=== PATIENT | female | born 1945 | race Caucasian/White ===

== ENCOUNTER → 2016-06-25 | Outpatient (REF) | payer MEDICARE, OTHER ==
[~2016-06-25] MED LIST: ACET50TA PO; CIPR500T89 PO; DIFL150T PO; FLAG500T PO; no historical meds
== END ==
LOC: M LAB REF 13:15
PROVIDERS: ATTEND Internal Medicine
DX: E83.52 Hypercalcemia (principal)

== ENCOUNTER → 2017-08-19 | Outpatient (REF) | payer MEDICARE, OTHER ==
[2017-08-19 12:15] LABS: APPEARANCE, URINE MANUAL CLEAR (CLEAR); BILIRUBIN, URINE MANUAL NEGATIVE (NEGATIVE); BLOOD URINE MANUAL NEGATIVE (NEGATIVE); COLOR, URINE MANUAL LT YELLOW (YELLOW); GLUCOSE, URINE (UA) MANUAL NEGATIVE (NEGATIVE); KETONE, URINE MANUAL NEGATIVE (NEGATIVE); LEUKOCYTE ESTERASE, URINE MAN NEGATIVE (NEGATIVE); NITRITE, URINE MANUAL NEGATIVE (NEGATIVE); PROTEIN, URINE MANUAL NEGATIVE (NEGATIVE); SPECIFIC GRAVITY,URINE MANUAL 1.005 (1.002-1.035); UROBILINOGEN, URINE MANUAL NORMAL (NORMAL)
[2017-08-19 12:17] LABS: MICROSCOPIC INDICATED? MAN NO (NO); PROTHROMBIN TIME 13.3 SECONDS (12.4-14.5)
[2017-08-19 12:18] LABS: PARTIAL THROMBOPLASTIN TIME 28.2 SECONDS (26.8-37.9)
== END ==
LOC: M LAB REF 11:47
DX: Z01.818 Encounter for other preprocedural examination (principal); Z79.01 Long term (current) use of anticoagulants
CPT/HCPCS: 85610

== ENCOUNTER 2018-12-19 08:20 | Day surgery (SDC) | payer MEDICARE, OTHER ==
[~2018-12-19] VITALS: Ht 160 cm; Wt 66.2 kg
[~2018-12-19 08:20] MED LIST changes: -ACET50TA PO; +AMOX500T2 PO; +ASTE0.15; +MAPA500T17 PO; +NS 1,000 ML IV ONE; +ONE-TAB31 PO
[2018-12-19] MEDS ORDERED: PROPOFOL 200 MG/20 ML VIAL As Ordered ONE (10:18)
--- NOTE | 2018-12-19 10:40 | ROOR ---
Patient Name: Trena Linder Procedure Date: 12/19/2018 10:17 AM Date of : 1945 Age: 73 Room: [facility] Gender: Female Note Status: Finalized Procedure: Total Colonoscopy to Cecum Indications: Screening for colorectal malignant neoplasm Providers: Sree Bhagat MD Referring MD: Vianney Martínez DO Requesting Provider: Medicines: Monitored Anesthesia Care Complications: No immediate complications. Procedure: Pre-Anesthesia Assessment: - The heart rate, respiratory rate, oxygen saturations, blood pressure, adequacy of pulmonary ventilation, and response to care were monitored throughout the procedure. The Colonoscope was introduced through the anus and advanced to the cecum, identified by appendiceal orifice and ileocecal valve. The colonoscopy was performed without difficulty. The patient tolerated the procedure well. The quality of the bowel preparation was excellent. Findings: The perianal and digital rectal examinations were normal. Non-bleeding internal hemorrhoids were found during retroflexion. The hemorrhoids were small and Grade I (internal hemorrhoids that do not prolapse). Multiple small and large-mouthed diverticula were found in the recto-sigmoid colon, sigmoid colon and descending colon. The exam was otherwise without abnormality on direct and retroflexion views. Impression: - Non-bleeding internal hemorrhoids. - Diverticulosis in the recto-sigmoid colon, in the sigmoid colon and in the descending colon. - The examination was otherwise normal on direct and retroflexion views. - No specimens collected. - The exam was otherwise normal to the cecum. Recommendation: - Patient has a contact number available for emergencies. The signs and symptoms of potential delayed complications were discussed with the patient. Return to normal activities tomorrow. Written discharge instructions were provided to the patient. - High fiber diet. - Discharge patient to home. - Continue present medications. - Repeat colonoscopy Repeat for symptoms only. for screening purposes. - The findings and recommendations were discussed with the patient's family. Sree Bhagat MD Sree Bhagat MD 12/19/2018 10:40:02 AM Electronically signed by Sree Bhagat MD Number of Addenda: 0 Note Initiated On: 12/19/2018 10:17 AM Estimated Blood Loss: Estimated blood loss: none.
[2018-12-19 11:05] VITALS: BP 174/80
== END 2018-12-19 11:09 | disposition home or self-care (01) ==
LOC: M OPP 08:20
PROVIDERS: ATTEND Internal Medicine Gastroenterology
DX: Z12.11 Encounter for screening for malignant neoplasm of colon (principal); K64.0 First degree hemorrhoids; K57.30 Diverticulosis of large intestine without perforation or abscess without bleeding; G47.30 Sleep apnea, unspecified; Z88.5 Allergy status to narcotic agent; Z88.8 Allergy status to other drugs, medicaments and biological substances; Z91.040 Latex allergy status

== ENCOUNTER 2018-12-30 10:00 | Emergency (ER) | payer MEDICARE, OTHER ==
[~2018-12-30] VITALS: Ht 160 cm; Wt 66.4 kg
[~2018-12-30 10:00] MED LIST changes: -NS 1,000 ML IV ONE
[2018-12-30 12:04] LABS: BASO % 0.2 % (0.0-1.0); EOS # 0.1 10^3/uL (0.0-0.50); EOS % 0.9 % (0.0-3.0); HEMATOCRIT 39.4 % (36.0-47.0); HEMOGLOBIN 12.7 g/dl (12.0-15.5); LYMPH # 1.2 10^3/uL (1.5-4.5); LYMPH % 9.2 % (24.0-44.0); MEAN CORPUSCULAR HEMOGLOBIN 28.7 pg (27.0-33.0); MEAN CORPUSCULAR HGB CONC 32.2 g/dl (32.0-36.5); MEAN CORPUSCULAR VOLUME 89.1 fl (80.0-96.0); MONO # 1.6 10^3/uL (0.0-0.8); MONO % 12.7 % (0.0-5.0); NEUTROPHILS # 9.7 10^3/uL (1.8-7.7); NEUTROPHILS % 76.4 % (36.0-66.0); PLATELET COUNT, AUTOMATED 366 10^3/uL (150-450); RED BLOOD COUNT 4.42 10^6/uL (4.00-5.40); WHITE BLOOD COUNT 12.7 10^3/uL (4.0-10.0)
[2018-12-30 12:33] LABS: ALBUMIN 3.4 GM/DL (3.2-5.2); ALT/SGPT 35 U/L (12-78); BILIRUBIN,DIRECT 0.2 MG/DL (0.0-0.2); BLOOD UREA NITROGEN 12 MG/DL (7-18); CALCIUM LEVEL 9.3 MG/DL (8.8-10.2); CARBON DIOXIDE LEVEL 31 MEQ/L (21-32); CHLORIDE LEVEL 102 MEQ/L (98-107); CREATININE FOR GFR 0.69 MG/DL (0.55-1.30); GLOMERULAR FILTRATION RATE > 60.0 (>39); GLUCOSE, FASTING 93 MG/DL (70-100); LIPASE 69 U/L (73-393); SODIUM LEVEL 141 MEQ/L (136-145); TOTAL PROTEIN 6.9 GM/DL (6.4-8.2)
[2018-12-30] MEDS ORDERED: ISOVUE-370 76% 100ML VIAL (Q9967) As Ordered ONE (12:36)
--- NOTE | 2018-12-30 13:53 | REP ---
CT of the abdomen and pelvis with bowel contrast, without IV contrast, CT angiography: There is no atheroma or stenosis at the proximal celiac artery, superior mesenteric artery or inferior mesenteric artery. There is no calcified atheroma or stenosis on the right or left renal arteries. There is no atheroma or stenosis in the iliac arteries, femoral arteries or their bifurcations. There are multiple diverticula throughout the entire colon from cecum to rectosigmoid colon. There is wall thickening and pericolonic stranding of the sigmoid colon compatible with diverticulitis. There is no pericolonic fluid collection or abscess. Additionally, there is a small focal zone of pericolonic stranding in the distal descending colon without fluid collection or abscess formation compatible with a second small zone of diverticulitis. There is no pneumoperitoneum or ascites. There is surgical fusion of the lumbar spine from L3-S1 . As an interval change. The visualized lung francisco are unremarkable. There is an hepatic left lobe cyst measuring 3.0 cm. This measured 2-0.3 cm previously. The hepatic parenchyma is otherwise unremarkable. There are surgical clips in the gallbladder fossa, unchanged. Pancreas, spleen and adrenals are unremarkable. There is a small 1 cm Bosniak type 1 left renal cyst at the mid pole peripherally. The kidneys are otherwise unremarkable. Abdominal aorta is unremarkable. The bowel mesentery is unremarkable except for diverticulosis/diverticulitis. Pelvis: There are calcified fibroids in the uterus. The adnexa are unremarkable. There is no ascites. The bladder is suboptimally distended and cannot be further evaluated. Impression: There are no stenoses of the celiac artery, superior mesenteric artery are inferior mesenteric artery. There is descending colon and sigmoid colon diverticulitis as described. There is no pericolonic abscess or fluid collection. No ascites. Cholecystectomy. Calcified uterine fibroid. Surgical fusion of the lumbar spine. Electronically Signed by Mason Munson MD 12/30/2018 01:45 P
[2018-12-30] MEDS ORDERED: AUGM875T28 PO (14:46)
[2018-12-30 15:00] VITALS: BP 127/71
== END 2018-12-30 15:00 | disposition home or self-care (01) ==
LOC: M ED 10:00
DX: K57.32 Diverticulitis of large intestine without perforation or abscess without bleeding (principal); D25.9 Leiomyoma of uterus, unspecified; J44.9 Chronic obstructive pulmonary disease, unspecified; J45.909 Unspecified asthma, uncomplicated; N80.9 Endometriosis, unspecified; F41.9 Anxiety disorder, unspecified; Z88.5 Allergy status to narcotic agent; Z91.040 Latex allergy status
CPT/HCPCS: 36415; 74174; 80048; 80076; 81001; 83605; 83690; 85025; 99284; Q9967

== ENCOUNTER → 2020-10-18 | Outpatient (CLI) | payer MEDICARE, OTHER ==
[~2020-10-18] MED LIST changes: +AUGM875T28 PO
--- NOTE | 2020-10-18 10:45 | REPPI ---
INDICATION: G47.33 OBSTRUCTIVE SLEEP APNEA. COMPARISON: Multiple the latest 12/26/2012 a portable exam FINDINGS: The superior mediastinal structures are midline. The cardiac silhouette is unremarkable in size, shape, and position. The diaphragmatic surfaces of the lungs are regular, and the costophrenic angles are clear. The pulmonary francisco are clear. The imaged osseous structures are intact. IMPRESSION: There is no acute cardiopulmonary disease. <Electronically signed by Eloy Vegas > 10/18/20 1049
== END ==
LOC: M PLAIMG 10:13
PROVIDERS: ATTEND Internal Medicine Pulmonary Disease
DX: G47.33 Obstructive sleep apnea (adult) (pediatric) (principal)

== ENCOUNTER → 2020-11-19 | Outpatient (CLI) | payer MEDICARE, OTHER ==
[~2020-11-19] MED LIST changes: +METHACHOLINE KIT (J7674) INH ONE
--- NOTE | 2020-11-19 11:17 | PFTRPT ---
Height: 62.50 Inches Weight: 150.00 Lbs BSA: 1.70 Diagnosis: R06.02 DATE: 11/19/2020 ORDERED BY: Jun Aleman M.D. QUALITY: Study of excellent technical quality. PROCEDURE: Under protocol, methacholine was administered. Even after a maximal dose of 25 mg or 188.875 CDUs, no provocation dose ever achieved. IMPRESSION: Negative methacholine challenge study. MTDD
== END ==
LOC: M CARPUL 09:50
PROVIDERS: ATTEND Internal Medicine Pulmonary Disease
DX: R06.02 Shortness of breath (principal)
CPT/HCPCS: 94070; 95070; J7674

== ENCOUNTER 2021-02-13 12:37 | Inpatient (IN) | payer MEDICARE, OTHER ==
[~2021-02-13] VITALS: Ht 160 cm; Wt 65.7 kg
[~2021-02-13 12:37] MED LIST changes: -METHACHOLINE KIT (J7674) INH ONE
--- OUTSIDE RECORDS SUMMARY | 2021-02-13 12:47 | CCD | Continuity of Care Document ---
Author Author Trena ALEMAN MD Organization Unknown Address [address] [place] [address] Phone [phone] Care Team Providers Care Housekeeping Supervisor Hotel Name Role Phone TanyaVianney D.O. AUTM [phone] Problems Active Problems Provider Date Disturbance of consciousness Kaia Guerrero A.NCarlos Onse t: 03/23/2016 Sleep apnea Kaia Guerrero A.NRobPRob Onset: 2015 Social History Type Date Description Comments Sex Unknown Tobacco Use Start: Unknown Patient has never smoked Smoking Status Reviewed: 12/11/20 Patient has never smoked Allergies, Adverse Reactions, Alerts Description No Known Drug Allergies Medications Active Medications SIG Qnty Indications Ordering Provide r Date CPAP +6 cm jade Aleman MD 10/2017 Immunizations Description No Information Available Vital Signs Date Vital Result Comment 12/11/2020 3:20pm BP Systolic 120 mmHg BP Diastolic 70 mmHg Heart Rate 70 /min O2 % BldC Oximetry 98 % Room Air 10/18/2020 9:45am BP Systolic 118 mmHg BP Diastolic 80 mmHg Heart Rate 74 /min O2 % BldC Oximetry 98 % Room Air Height 63 inches 5'3" Weight 147.00 lb BMI (Body Mass Index) 26.0 kg/m2 [place] Body Weight 115 lb Weight 66.679 kg BSA (Body Surface Area) 1.70 m2 Results Description No Information Available Procedures Date Code Description Status 11/14/2020 53573 Diffusing Capacity Completed 11/14/2020 63287 Plethysmography Determination Niru ng Volumes & Per Airway Resist Completed 11/14/2020 70514 Bronchospasm Evaluation Complete d 10/18/2020 29912 Office/Outpatient Established Mo d MDM 30-39 Min Completed Medical Devices Description No Information Available Encounters Type Date Location Provider Dx Diagnosis Office Visit 10/18/2020 9:45a [facility] Lawrbethel Aleman MD G47.33 Obstructive sleep apnea (adult) (pediatr ic) R06.02 Shortness of breath J30.9 Allergic rhinitis, unspecifi ed Assessments Date Code Description Provider 12/11/2020 G47.33 Obstructive sleep apnea (adult) (pediatric) Jun Aleman MD 12/11/2020 J30.9 Allergic rhinitis, unspecified Neto Aleman MD 12/11/2020 R06.02 Shortness of breath Jun mclain MD 11/14/2020 R06.02 Shortness of breath Pulmonary La b 10/18/2020 G47.33 Obstructive sleep apnea (adult) (pediatric) Jun Aleman MD 10/18/2020 R06.02 Shortness of breath Jun mclain MD 10/18/2020 J30.9 Allergic rhinitis, unspecified Neto Aleman MD Plan of Treatment 12/11/2020 - Jun Aleman MD* G47.33 Obstructive sleep apnea (adult) (pediatric) * J30.9 Allergic rhinitis, unspecified * R06.02 Shortness of breath * * Follow up:* 12 months....no testing Functional Status Description No Information Available Mental Status Description No Information Available Referrals Description No Information Available
--- OUTSIDE RECORDS SUMMARY | 2021-02-13 12:47 | CCD | Continuity of Care Document ---
Author Author Trena ALEMAN MD Organization Unknown Address [address] [place] [address] Phone [phone] Care Team Providers Care Independent Distributor Name Role Phone TanyaVianney D.O. AUTM [phone] Problems Active Problems Provider Date Disturbance of [...] lb BMI (Body Mass Index) 26.0 kg/m2 [place] Body Weight 115 lb Weight 66.679 kg BSA (Body Surface Area) 1.70 m2 Results Description No Information Available Procedures Date Code Description Status 11/14/2020 16975 Diffusing Capacity Completed 11/14/2020 08529 Plethysmography Determination Niru ng Volumes & Per Airway Resist Completed 11/14/2020 88085 Bronchospasm Evaluation Complete d 10/18/2020 58971 Office/Outpatient Established Mo d MDM 30-39 Min Completed Medical Devices Description No Information Available Encounters Type Date Location Provider Dx Diagnosis Office Visit 10/18/2020 9:45a [facility] Lawrbethel Aleman MD G47.33 Obstructive sleep apnea (adult) (pediatr ic) R06.02 Shortness of breath J30.9 Allergic rhinitis, unspecifi ed Assessments Date Code Description Provider 12/11/2020 G47.33 Obstructive sleep apnea (adult) (pediatric) Jun Aleman MD 12/11/2020 J30.9 Allergic rhinitis, unspecified Neto Aleman MD 12/11/2020 R06.02 Shortness of breath Jun mclian MD 11/14/2020 R06.02 Shortness of breath Pulmonary [...]
--- OUTSIDE RECORDS SUMMARY | 2021-02-13 12:47 | CCD | Continuity of Care Document ---
Author Author Pulmonary [facility], [facility] More Organization Unknown Address [address] [place] [address] Phone [phone] Care Team Providers Care Slice Plug Cutter Operator Helper Name Role Phone Vianney Martínez D.O. AUTM [phone] Problems Active Problems Provider Date Disturbance of consciousness Kaia Guerrero A.N.P. Onse t: 03/23/2016 Sleep apnea Kaia Guerrero A.NCarlos Onset: 2015 Social History Type Date Description Comments Sex Unknown Tobacco Use Start: Unknown Patient has never smoked Smoking Status Reviewed: 10/18/19 Patient has never smoked Allergies, Adverse Reactions, Alerts Description No Known Drug Allergies Medications Active Medications SIG Qnty Indications Ordering Provide r Date CPAP +6 cm jade Aleman MD 10/2017 Immunizations Description No Information Available Vital Signs Date Vital Result Comment 10/18/2020 9:45am BP Systolic 118 mmHg BP Diastolic 80 mmHg Heart Rate 74 /min O2 % BldC Oximetry 98 % Room Air Height 63 inches 5'3" Weight 147.00 lb BMI (Body Mass Index) 26.0 kg/m2 [place] Body Weight 115 lb Weight 66.679 kg BSA (Body Surface Area) 1.70 m2 10/18/2019 8:45am BP Systolic 120 mmHg BP Diastolic 70 mmHg Heart Rate 70 /min O2 % BldC Oximetry 96 % Room Air Body Temperature 97.0 F Height 63 inches 5'3" Weight 148.00 lb BMI (Body Mass Index) 26.2 kg/m2 [place] Body Weight 115 lb Weight 67.133 kg BSA (Body Surface Area) 1.70 m2 Results Description No Information Available Procedures Date Code Description Status 11/14/2020 76907 Diffusing Capacity Completed 11/14/2020 26334 Plethysmography Determination Niru ng Volumes & Per Airway Resist Completed 11/14/2020 86410 Bronchospasm Evaluation Complete d 10/18/2020 56818 Office/Outpatient Established Mo d MDM 30-39 Min Completed Medical Devices Description No Information Available Encounters Type Date Location Provider Dx Diagnosis Office Visit 10/18/2020 9:45a [facility] Lawrenc adán Aleman MD G47.33 Obstructive sleep apnea (adult) (pediatr ic) R06.02 Shortness of breath J30.9 Allergic rhinitis, unspecifi ed Assessments Date Code Description Provider 11/14/2020 R06.02 Shortness of breath Pulmonary La b 10/18/2020 G47.33 Obstructive sleep apnea (adult) (pediatric) Jun Aleman MD 10/18/2020 R06.02 Shortness of breath Jun mclain MD 10/18/2020 J30.9 Allergic rhinitis, unspecified L janak Aleman MD Plan of Treatment Future Appointment(s):* 12/13/2020 11:15 am - Jun Aleman MD at [facility] * 11/19/2020 10:00 am - [facility] at [facility] 10/18/2020 - Jun Aleman MD* G47.33 Obstructive sleep apnea (adult) (pediatric) * R06.02 Shortness of breath * J30.9 Allergic rhinitis, unspecified * * Comments:* 1. Secondary to cough or shortness of breath, we will obtain full pulmonary function studies and a methacholine bronchoprovocation study.~ In view of her complaints of exertional dyspnea and the question of allergy related, we will repeat her pulmonary functions and a methacholine. I have asked her to update a chest x-ray. When discussing testing first, she was not sure she wanted to proceed, as she said she hates taking medicines but, certainly, if she has issues, we can decide on medications after we know what we are dealing with. She is now agreeable to testing. I will see her in return when the above is available. She can, certainly, call sooner if problems arise with which we can be of assistance. * Follow up:* 1. Schedule pulmonary function testing. 2. Schedule methacholine on a separate day and proceed if pulmonary function testing is normal. 3. Return to see me in follow up with pulmonary function testing, and methacholine challenge. and CXR Functional Status Description No Information Available Mental Status Description No Information Available Referrals Description No Information Available
--- OUTSIDE RECORDS SUMMARY | 2021-02-13 12:47 | CCD ---
Author Author [facility] Organization [facility] Address Unknown Phone Unavailable Care Team Providers Care Tripe Washer Name Role Phone Bud THIBODEAUX. BENEFITS SPECIALIST DAISHA Unavailable [phone] CARLOS EDUARDO, A. BENEFITS SPECIALIST DAISHA Unavailable [phone] CARLOS EDUARDO, A. BENEFITS SPECIALIST DAISHA Unavailable [phone] CARLOS EDUARDO, A. BENEFITS SPECIALIST DAISHA Unavailable [phone] CARLOS EDUARDOLeslie CULLEN BENEFITS SPECIALIST DAISHA Unavailable [phone] CARLOS EDUARDO, A. BENEFITS SPECIALIST DAISHA Unavailable [phone] CARLOS EDUARDO, A. BENEFITS SPECIALIST DAISHA Unavailable [phone] CARLOS EDUARDO, A. BENEFITS SPECIALIST DAISHA Unavailable [phone] CARLOS EDUARDO, A. BENEFITS SPECIALIST DAISHA Unavailable [phone] CARLOS EDUARDO, A. BENEFITS SPECIALIST DAISHA Unavailable [phone] CARLOS EDUARDO, A. BENEFITS SPECIALIST DAISHA Unavailable [phone] CARLOS EDUARDO, A. BENEFITS SPECIALIST DAISHA Unavailable [phone] CARLOS EDUARDO, A. BENEFITS SPECIALIST DAISHA Unavailable [phone] Bud THIBODEAUX. BENEFITS SPECIALIST DAISHA Unavailable [phone] CARLOS EDUARDO, Bud. BENEFITS SPECIALIST DAISHA Unavailable [phone] Tanya, Vianney DO Unavailable Unavailable Tanya, Vianney DO Unavailable Unavailable Tanya, Vianney DO Unavailable Unavailable Tanya, Vianney DO Unavailable Unavailable Tanya, Vianney DO Unavailable Unavailable Tanya, Vianney DO Unavailable Unavailable Tanya, Vianney DO Unavailable Unavailable Tanya, Vianney DO Unavailable Unavailable Tanya, Vianney DO Unavailable Unavailable Tanya, Vianney DO Unavailable Unavailable Tanya, Vianney DO Unavailable Unavailable Tanya, Vianney DO Unavailable Unavailable Tanya, Vianney DO Unavailable Unavailable Tanya, Vianney DO Unavailable Unavailable Tanya, Vianney DO Unavailable Unavailable Tanya, Vianney DO Unavailable Unavailable Tanya, Vianney DO Unavailable Unavailable Tanya, Vianney DO Unavailable Unavailable Tanya, Vianney DO Unavailable Unavailable Tanya, Vianney DO Unavailable Unavailable Tanya, Vianney DO Unavailable Unavailable Tanya, Vianney DO Unavailable Unavailable Tanya, Vianney DO Unavailable Unavailable Tanya, Vianney DO Unavailable Unavailable Tanya, Vianney DO Unavailable Unavailable Tanya, Vianney DO Unavailable Unavailable Tanya, Vianney DO Unavailable Unavailable Tanya, Vianney DO Unavailable Unavailable Tanya, Vianney DO Unavailable Unavailable Tanya, Vianney DO Unavailable Unavailable Tanya, Vianney DO Unavailable Unavailable Tanya, Vianney DO Unavailable Unavailable Tanya, Vianney DO Unavailable Unavailable Tanya, Vianney DO Unavailable Unavailable Tanya, Vianney DO Unavailable Unavailable Tanya, Vianney DO Unavailable Unavailable Tanya, Vianney DO Unavailable Unavailable Tanya, Vianney DO Unavailable Unavailable Tanya, Vianney DO Unavailable Unavailable Tanya, Vianney DO Unavailable Unavailable Tanya, Vianney DO Unavailable Unavailable Tanya, Vianney DO Unavailable Unavailable Tanya, Vianney DO Unavailable Unavailable Tanya, Vianney DO Unavailable Unavailable Tanya, Vianney DO Unavailable Unavailable Tanya, Vianney DO Unavailable Unavailable Tanya, Vianney DO Unavailable Unavailable Tanya, Vianney DO Unavailable Unavailable Tanya, Vianney DO Unavailable Unavailable Tanya, Vianney DO Unavailable Unavailable Tanya, Vianney DO Unavailable Unavailable Tanya, Vianney DO Unavailable Unavailable Tanya, Vianney DO Unavailable Unavailable Tanya, Vianney DO Unavailable Unavailable Tanya, Vianney DO Unavailable Unavailable Tanya, Vianney DO Unavailable Unavailable Tanya, Vianney DO Unavailable Unavailable Tanya, Vianney DO Unavailable Unavailable Tanya, Vianney DO Unavailable Unavailable Tanya, Vianney DO Unavailable Unavailable Tanya, Vianney DO Unavailable Unavailable Tanya, Vianney DO Unavailable Unavailable Tanya, Vianney DO Unavailable Unavailable Tanya, Vianney DO Unavailable Unavailable Tanya, Vianney DO Unavailable Unavailable Tanya, Vianney DO Unavailable Unavailable Tanya, Vianney DO Unavailable Unavailable Tanya, Vianney DO Unavailable Unavailable Tanya, Vianney DO Unavailable Unavailable Tanya, Vianney DO Unavailable Unavailable Tanya, Vianney DO Unavailable Unavailable Tanya, Vianney DO Unavailable Unavailable Tanya, Vianney DO Unavailable Unavailable Tanya, Vianney DO Unavailable Unavailable Manoj Aleman MD Unavailable Unavailable Manoj Aleman MD Unavailable Unavailable Manoj Aleman MD Unavailable Unavailable Manoj Aleman MD Unavailable Unavailable Manoj Aleman MD Unavailable Unavailable Manoj Aleman MD Unavailable Unavailable Manoj Aleman MD Unavailable Unavailable Manoj Aleman MD Unavailable Unavailable Manoj Aleman MD Unavailable Unavailable Manoj Aleman MD Unavailable Unavailable Manoj Aleman MD Unavailable Unavailable Manoj Aleman MD Unavailable Unavailable Manoj Aleman MD Unavailable Unavailable Manoj Aleman MD Unavailable Unavailable Manoj Aleman MD Unavailable Unavailable Manoj Aleman MD Unavailable Unavailable Manoj Aleman MD Unavailable Unavailable Manoj Aleman MD Unavailable Unavailable Manoj Aleman MD Unavailable Unavailable Manoj Aleman MD Unavailable Unavailable Manoj Aleman MD Unavailable Unavailable Manoj Aleman MD Unavailable Unavailable Manoj Aleman MD Unavailable Unavailable Manoj Aleman MD Unavailable Unavailable Manoj Aleman MD Unavailable Unavailable Manoj Aleman MD Unavailable Unavailable Manoj Aleman MD Unavailable Unavailable Manoj Aleman MD Unavailable Unavailable Manoj Aleman MD Unavailable Unavailable Manoj Aleman MD Unavailable Unavailable Manoj Aleman MD Unavailable Unavailable Manoj Aleman MD Unavailable Unavailable Manoj Aleman MD Unavailable Unavailable Manoj Aleman MD Unavailable Unavailable Manoj Aleman MD Unavailable Unavailable Manoj Aleman MD Unavailable Unavailable Manoj Aleman MD Unavailable Unavailable Manoj Aleman MD Unavailable Unavailable Manoj Aleman MD Unavailable Unavailable Manoj Aleman MD Unavailable Unavailable Manoj Aleman MD Unavailable Unavailable Manoj Aleman MD Unavailable Unavailable Manoj Aleman MD Unavailable Unavailable Manoj Aleman MD Unavailable Unavailable Manoj Aleman MD Unavailable Unavailable Manoj Aleman MD Unavailable Unavailable Manoj Aleman MD Unavailable Unavailable Manoj Aleman MD Unavailable Unavailable Manoj Aleman MD Unavailable Unavailable Maonj Aleman MD Unavailable Unavailable Manoj Aleman MD Unavailable Unavailable Manoj Aleman MD Unavailable Unavailable Manoj Aleman MD Unavailable Unavailable Manoj Aleman MD Unavailable Unavailable Re-disclosure Warning The records that you are about to access may contain information from federally-assisted alcohol or drug abuse programs. If such information is present, then the following federally mandated warning applies: This information has been disclosed to you from records protected by federal confidentiality rules (42 CFR part 2). The federal rules prohibit you from making any further disclosure of this information unless further disclosure is expressly permitted by the written consent of the person to whom it pertains or as otherwise permitted by 42 CFR part 2. A general authorization for the release of medical or other information is NOT sufficient for this purpose. The Federal rules restrict any use of the information to criminally investigate or prosecute any alcohol or drug abuse patient.The records that you are about to access may contain highly sensitive health information, the redisclosure of which is protected by Article 27-F of the [facility] Public Health law. If you continue you may have access to information: Regarding HIV / AIDS; Provided by facilities licensed or operated by the [facility] Office of Mental Health; or Provided by the [facility] Office for People With Developmental Disabilities. If such information is present, then the following [facility] mandated warning applies: This information has been disclosed to you from confidential records which are protected by state law. State law prohibits you from making any further disclosure of this information without the specific written consent of the person to whom it pertains, or as otherwise permitted by law. Any unauthorized further disclosure in violation of state law may result in a fine or chcf sentence or both. A general authorization for the release of medical or other information is NOT sufficient authorization for further disc losure. Family History Family Member Name Family Member Gender Family Member Status Date o f Status Description Data Source(s) Unknown Unknown Problem [facility] ([facility]) Unknown Male Problem [facility] ([facility] () - lung disease Unknown Male Problem [facility] ([facility] () Encounters Encounter Providers Location Date Indications Data Source(s ) Outpatient Attender: DAISHA THIBODEAUX 01/31 11:36:31 AM EDT - 02/13/2021 12:11:09 PM EDT [facility] ([facility] ) Outpatient Attender: Jun Pena/Magno/Nacho/Argenis eindelda 12/11/2020 03:15:00 PM EDT [facility] ([facility]) Outpatient Attender: Jun Pena/Magno/Nacho/Argenis eindelda 10/18/2020 09:45:00 AM EDT [facility] ([facility]) Outpatient Attender: Vianney Milligan 10/16 08:00:00 AM EDT [facility] ([facility] ) Immunizations Vaccine Date Status Description Data Source(s) Shingrix Zoster Vaccine (HZV), Recombinant, Subunit, A djuvanted 10/16/2020 08:11:00 AM EDT completed [facility] ([facility]) This CVX code allows reporting of a vacc ination when formulation is unknown (for example, when recording a Influenza vaccination when noted on a vaccination card) 10/16/2020 08:11:00 AM EDT completed MEDEN T ([facility]) PNEUMOC 13-YAZMIN CONJ-DIP CRM/PF 10/16/2020 12:00:00 AM EDT completed [facility] Medications Medication Brand Name Start Date Product Form Dose Route Admi nistrative Instructions Pharmacy Instructions Status Indications Reaction Description Data Source(s) 150 mg 02/10/2021 12:00:00 AM EDT tablet 2 TAKE ONE TABLET BY MOUTH EVERY DAY TAKE ONE TABLET BY MOUTH EVERY DAY SOLD: 02/10/2021 [facility] 250 mg 02/04/2021 12:00:00 AM EDT tablet 6 TAKE TWO TABLETS BY MOUTH AT ONCE ON THE FIRST DAY THEN TAKE ONE DAILY THEREAFTER TAKE TWO TABLETS BY MOUTH AT ONCE ON THE FIRST DAY THEN TAKE ONE DAILY THEREAFTER SOLD: 02/04/2021 [facility] 20 mg 02/04/2021 12:00:00 AM EDT tablet 10 TAKE TWO TABLETS BY MOUTH EVERY MORNING FOR 5 DAYS TAKE TWO TABLETS BY MOUTH EVERY MORNING FOR 5 DAYS LINDSAY [facility] Azelastine hydrochloride 0.206 MG/ACTUAT Metered Dose Nasal Egan 205.5 mcg (0.15 %) AZELASTINE HCL 10/31/2020 12:00:00 AM EDT spray,non-aerosol 30 SPRAY 1 SPRAY IN EACH NOSTRIL ONCE A DAY NEEDED SPRAY 1 SPRAY IN EACH NOSTRIL ONCE A DAY NEEDED SOLD: 11/02/2020 [facility] Nystatin 023166 UNT/ML / Triamcinolone A cetonide 1 MG/ML Topical Cream 100,000- 0.1 unit/g-% NYSTATIN/TRIAMCIN 10/17/2020 12:00:00 AM EDT cream 30 APPLY UNDER BOTH BREASTS FOUR TIMES A DAY APPLY UNDER BOTH BREASTS FOUR TIMES A DAY SOLD: 10/30/2020 [facility] 100,000 unit/mL 10/16/2020 12:00:00 AM EDT suspension 150 SWISH 1 TEASPOONFUL (5 ML) IN MOUTH THEN SWALLOW THREE TIMES A DAY FOR 10 DAYS AND NEEDED SWISH 1 TEASPOONFUL (5 ML) IN MOUTH THEN SWALLOW THREE TIMES A DAY FOR 10 DAYS AND NEEDED SOLD: 01/23/2021 [facility] Nystatin 360997 UNT/ML Oral Suspension Nystatin 10/16/2020 12:00:00 AM EDT active [facility] ([facility]) 100,000 unit/mL 10/16/2020 12:00:00 AM EDT suspension 250 SWISH 1 TEASPOONFUL (5 ML) IN MOUTH THEN SWALLOW THREE TIMES A DAY FOR 10 DAYS AND NEEDED SWISH 1 TEASPOONFUL (5 ML) IN MOUTH THEN SWALLOW THREE TIMES A DAY FOR 10 DAYS AND NEEDED SOLD: 12/10/2020 [facility] 100,000 unit/mL 10/16/2020 12:00:00 AM EDT suspension 250 SWISH 1 TEASPOONFUL (5 ML) IN MOUTH THEN SWALLOW THREE TIMES A DAY FOR 10 DAYS AND NEEDED SWISH 1 TEASPOONFUL (5 ML) IN MOUTH THEN SWALLOW THREE TIMES A DAY FOR 10 DAYS AND NEEDED SOLD: 10/16/2020 [facility] 0.5 ML Streptococcus pneumoniae serotype 1 capsular antigen diphtheria [id number] protein conjugate vaccine 0.0044 MG/ML / Streptococcus pneumoniae serotype 14 capsular antigen diphtheria [id number] protein conjugate vaccine 0.0044 MG/ML / Streptococcus pneumonia Prevnar 13 10/16/2020 12:00:00 AM EDT active [facility]) Shingrix Shingrix 10/16/2020 12:00:00 AM EDT activ e [facility] ([facility]) 150 mg 09/20/2020 12:00:00 AM EDT tablet 2 TAKE ONE TABLET BY MOUTH EVERY DAY TAKE ONE TABLET BY MOUTH EVERY DAY SOLD: 11/05/2020 [facility] 150 mg 09/20/2020 12:00:00 AM EDT tablet 2 TAKE ONE TABLET BY MOUTH EVERY DAY TAKE ONE TABLET BY MOUTH EVERY DAY SOLD: 09/20/2020 [facility] 150 mg 09/20/2020 12:00:00 AM EDT tablet 2 TAKE ONE TABLET BY MOUTH EVERY DAY TAKE ONE TABLET BY MOUTH EVERY DAY SOLD: 10/02/2020 [facility] 150 mg 09/20/2020 12:00:00 AM EDT tablet 2 TAKE ONE TABLET BY MOUTH EVERY DAY TAKE ONE TABLET BY MOUTH EVERY DAY SOLD: 12/17/2020 [facility] 250 mg 08/02/2020 12:00:00 AM EDT tablet 6 TAKE TWO TABLETS BY MOUTH AT ONCE ON THE FIRST DAY THEN TAKE ONE DAILY THEREAFTER TAKE TWO TABLETS BY MOUTH AT ONCE ON THE FIRST DAY THEN TAKE ONE DAILY THEREAFTER SOLD: 08/02/2020 [facility] Zithromax Z-Fredy Zithromax Z-Fredy 08/02/2020 12:00:00 AM EDT ORAL active [facility] ([facility]) 150 mg 02/20/2020 12:00:00 AM EDT tablet 2 TAKE 1 TABLET FOR 1 DOSE THEN MAY REPEAT IN 3 DAYS TAKE 1 TABLET FOR 1 DOSE THEN MAY REPEAT IN 3 DAYS LINDSAY [facility] 150 mg 02/20/2020 12:00:00 AM EDT tablet 2 TAKE 1 TABLET FOR 1 DOSE THEN MAY REPEAT IN 3 DAYS TAKE 1 TABLET FOR 1 DOSE THEN MAY REPEAT IN 3 DAYS LINDSAY [facility] 150 mg 02/20/2020 12:00:00 AM EDT tablet 2 TAKE 1 TABLET FOR 1 DOSE THEN MAY REPEAT IN 3 DAYS TAKE 1 TABLET FOR 1 DOSE THEN MAY REPEAT IN 3 DAYS LINDSAY [facility] 150 mg 02/20/2020 12:00:00 AM EDT tablet 2 TAKE 1 TABLET FOR 1 DOSE THEN MAY REPEAT IN 3 DAYS TAKE 1 TABLET FOR 1 DOSE THEN MAY REPEAT IN 3 DAYS LINDSAY [facility] 150 mg 02/20/2020 12:00:00 AM EDT tablet 2 TAKE 1 TABLET FOR 1 DOSE THEN MAY REPEAT IN 3 DAYS TAKE 1 TABLET FOR 1 DOSE THEN MAY REPEAT IN 3 DAYS LINDSAY [facility] 500 mg 02/14/2020 12:00:00 AM EDT capsule 4 TAKE FOUR CAPSULES BY MOUTH 1 HOUR PRIOR TO PROCEDURE TAKE FOUR CAPSULES BY MOUTH 1 HOUR PRIOR TO PROCEDURE SOLD: 12/04/2020 [facility] 500 mg 02/14/2020 12:00:00 AM EDT capsule 4 TAKE FOUR CAPSULES BY MOUTH 1 HOUR PRIOR TO PROCEDURE TAKE FOUR CAPSULES BY MOUTH 1 HOUR PRIOR TO PROCEDURE SOLD: 02/21/2020 [facility] 500 mg 01/19/2020 12:00:00 AM EDT capsule 4 TAKE FOUR CAPSULES BY MOUTH 1 HOUR PRIOR TO DENTAL PROCEDURE TAKE FOUR CAPSULES BY MOUTH 1 HOUR PRIOR TO DENTAL PROCEDURE SOLD: 01/22/2020 [facility] 150 mg 10/25/2019 12:00:00 AM EDT tablet 2 TAKE ONE TABLET BY MOUTH TODAY. MAY REPEAT IN 3 DAYS. TAKE ONE TABLET BY MOUTH TODAY. MAY REPEAT IN 3 DAYS. SOLD: 01/24/2020 [facility] 150 mg 10/25/2019 12:00:00 AM EDT tablet 2 TAKE ONE TABLET BY MOUTH TODAY. MAY REPEAT IN 3 DAYS. TAKE ONE TABLET BY MOUTH TODAY. MAY REPEAT IN 3 DAYS. SOLD: 01/04/2020 [facility] 150 mg 10/25/2019 12:00:00 AM EDT tablet 2 TAKE ONE TABLET BY MOUTH TODAY. MAY REPEAT IN 3 DAYS. TAKE ONE TABLET BY MOUTH TODAY. MAY REPEAT IN 3 DAYS. SOLD: 02/09/2020 [facility] Covid-19 vaccine, Unspecified completed [facility] ([facility]) Insurance Providers Payer name Policy type / Coverage type Policy ID Covered green party ID Covered green party's relationship to medel Policy Medel Plan Information [facility] [employer] Medigap Part B [id number] Self [id number] [facility] [employer] Commercial [id number] Self [id number] MEDICARE [id number] SP [id number] Medicare Natl Govt Servic Medicare Primary [id number] Self [id number] Medicare Natl Govt Servic Medicare Primary [id number] Self Medicare Natl Govt Servic Medicare Primary [id number] Self [id number] Medicare Natl Govt Servic Medicare Primary [id number] Self [id number] MEDICARE [id number] SP [id number] A MEDICARE A [id number] Self [id number] A [facility] Jurisdiction A [facility] C [id number] SELF [id number] Medicare C [id number] SELF [id number] A Medicare C [id number] SELF [id number] A Medicare C [id number] SELF [id number] A MEDICARE [id number] Zayra [id number] A Medicare Blue Ppo Commercial [id number] Self [id number] Medicare Blue Ppo Commercial [id number] Self [id number] Medicare Blue Ppo Commercial [id number] Self [id number] Medicare Blue Ppo Commercial [id number] Self [id number] Medicare Blue Ppo Commercial [id number] Self [id number] P Healthcare F [id number] SELF [id number] Medicare C [id number] SELF [id number] A MVP Healthcare F [id number] SELF [id number] DME Jurisdiction A [facility] C [id number] SELF [id number] P H [id number] Self [id number] [facility] Healthcare Commercial Indemnity [id number] Inde mnity P [id number] Zayra [id number] 001 [facility] Healthcare Commercial [id number] [facility] Healthcare F [id number] SELF [id number] [facility] [id number] Zayra [id number] 001 [facility] [id number] Zayra [id number] Medicare C [id number] SELF [id number] DME Jurisdiction A [facility] C [id number] SELF [id number] [place] Medicare Part B [id number] Self [id number] [facility] Health Care Commercial Insurance Co. [id number] Self [id number] Medicare [place] Medicare Primary [id number] Self [id number] [facility] Health Maintenance Organization (HMO) [id number] Self [id number] Medicare Natl Gov't Servi Medicare Primary [id number] Self [id number] [facility] Commercial [id number] Family Dependent [id number] MEDICARE C [id number] S [id number] A [facility] HEALTH CARE O [id number] P [id number] Medicare [place] Medicare Primary [id number] Self [id number] MVP [id number] Spo [id number] Medicare Medicare Primary [id number] Self [id number] [facility] Health Plans Commercial [id number] Family Dependent [id number] [facility] Health Care Health Maintenance Organization (HMO) [id number] Self [id number] Medicare Natl Gov't Servi Medicare Primary [id number] Self [id number] Medicare Medicare Primary [id number] Self [id number] [facility] Commercial [id number] Self [id number] [facility] Health Maintenance Organization (HMO) [id number] Self [id number] Medicare - NGS Medicare Primary [id number] Self [id number] [facility] HEALTH CARE [id number] SP [id number] Medicare Blue Ppo Commercial Plan [id number] Self Plan Three Medicare Blue Ppo Commercial [id number] Self [id number] MEDICARE C [id number] S [id number] P HEALTH CARE O [id number] S [id number] [facility] HEALTH CARE [id number] SP 82 [id number] P HEALTH CARE [id number] HU2 82 [id number] MVP Commercial [id number] Family Dependent Medicare Natl Gov't Servi Medicare Primary [id number] Self MVP [id number] 18 [id number] Medicare [place] Division [id number] 18 [id number] P HEALTH CARE O [id number] P 82 [id number] MEDICARE BLUE PPO C [id number] S [id number] [facility] [id number] [facility] [id number] [facility] [id number] 18 [id number] 001 MEDICARE BLUE PPO 306 [id number] SP [id number] MEDICARE [id number] SP [id number] A MEDICARE BLUE PPO 306 [id number] SP [id number] MEDICARE PI PI [id number] [facility] PI PI Problems, Conditions, and Diagnoses No Information Surgeries/Procedures Procedure Description Date Indications Data Source(s) OFFICE OUTPATIENT VISIT 15 MINUTES 12/11/2020 12:00:00 AM EDT [facility] ([facility]) Bronchospasm Evaluation 11/14/2020 12:00:00 AM EDT [facility] ([facility]) Plethysmography Determination Lung Volumes & Per Airway Resi st 11/14/2020 12:00:00 AM EDT [facility] DIFFUSING CAPACITY 11/14/2020 12:00:00 AM EDT [facility] ([facility]) OFFICE OUTPATIENT VISIT 25 MINUTES 10/18/2020 12:00:00 AM EDT [facility] ([facility]) OFFICE OUTPATIENT VISIT 15 MINUTES 10/16/2020 12:00:00 AM EDT [facility] ([facility]) Results ID Date Data Source [id number] 10/16/2020 08:36:00 AM EDT [facility] ([facility]) Name Value Range Interpretation Code Description Data Yazmin rce(s) Supporting Document(s) Cholesterol [Mass/volume] in Serum or Plasma 245 mg/dL 131-200 [facility] ([facility]) Triglyceride [Mass/volume] in Serum or Plasma 78 mg/dL 30-150 [facility] ([facility]) Cholesterol in LDL [Mass/volume] in Serum or Plasma by calcu lation 153 CALC 50-159 [facility] ([facility]) Cholesterol in HDL [Mass/volume] in Serum or Plasma 76 mg/dL 35-60 [facility] ([facility]) ID Date Data Source [id number] 10/16/2020 08:36:00 AM EDT [facility] ([facility]) Name Value Range Interpretation Code Description Data Yazmin rce(s) Supporting Document(s) Glucose [Mass/volume] in Serum or Plasma 91 mg/dL 74-99 [facility] ([facility]) 100-125 mg/dL PRE-DIABETES/FASTING >126 mg/dL DIABETES/FASTING Urea nitrogen [Mass/volume] in Serum or Plasma 26 mg/dL 7-18 [facility] ([facility]) Sodium [Moles/volume] in Serum or Plasma 142 meq/L 136-145 [facility] ([facility]) Creatinine 0.8 mg/dL 0.6-1.3 [facility] Potassium [Moles/volume] in Serum or Plasma 4.4 meq/L 3.5-5.1 [facility] ([facility]) Chloride [Moles/volume] in Serum or Plasma 104 meq/L 98-107 [facility] ([facility]) Carbon dioxide, total [Moles/volume] in Serum or Plasma 29 meq/L 21 -32 [facility] ([facility]) Calcium [Mass/volume] in Serum or Plasma 9.1 mg/dL 8.5-10.1 [facility] ([facility]) Alkaline phosphatase isoenzyme [Units/volume] in Serum or Pl asma 57 mg/dL 46-116 [facility] ([facility]) Aspartate aminotransferase [Enzymatic activity/volume] in Serum or Plasma 23 U/L 15-37 [facility] ([facility] ) Total Bilirubin 0.7 mg/dL 0.2-1.0 [facility] Alanine aminotransferase [Enzymatic activity/volume] in Seru m or Plasma 38 U/L 12-78 [facility] Proteinase 3 Ab [Units/volume] in Serum 6.5 g/dL 6.4-8.2 [facility] ([facility]) Albumin [Mass/volume] in Serum or Plasma 3.8 g/dL 3.4-5.0 [facility] A/G Ratio 1.41 CALC 1.00-1.90 [facility]) Glomerular filtration rate/1.73 sq M pre dicted among blacks [Volume Rate/Area] in Serum or Plasma by Creatinine-based formula (MDRD) Laboratory test result [facility] ([facility]) <content>CHRONIC KIDNEY DISEASE STAGING PER NKF</content>
<content></content>
<content>STAGE I & II GFR >= 60 NORMAL TO MILDLY DECREASED</content>
<content>STAGE III GFR 30-59 MODERATELY DECREASED</content>
<content>STAGE IV GFR 15-29 SEVERELY DECREASED</content>
<content>STAGE V GFR <15 VERY LITTLE GFR LEFT</content>
<content>ESRD GFR <15 ON [employer]</content>
<content></content> Glomerular filtration rate/1.73 sq M pre dicted among non-blacks [Volume Rate/Area] in Serum or Plasma by Creatinine-based formula (MDRD) Laboratory test result [facility] ([facility] ) ID Date Data Source [id number] 10/16/2020 08:36:00 AM EDT [facility] Name Value Range Interpretation Code Description Data Yazmin rce(s) Supporting Document(s) Leukocytes [#/volume] in Blood by Automated count 6.3 x10*3/UL 4.1-10 .9 [facility] ([facility]) Hemoglobin [Mass/volume] in Blood 13.7 g/dL 12.0-18.0 [facility] ([facility]) Erythrocytes [#/volume] in Blood by Automated count 4.62 x10*6/UL 4.2 0-6.30 [facility] ([facility]) Hematocrit [Volume Fraction] of Blood by Automated count 40.4 % 3 7.0-51.0 [facility] ([facility]) MCHC 34.0 g/dL 31.0-38.0 [facility] ([facility]) MCH 29.7 pg 26.0-32.0 [facility] ([facility]) MCV 87.4 fL 80.0-97.0 [facility] ([facility]) Platelets [#/volume] in Blood by Automated count 281 x10*3/UL 140-440 [facility] ([facility]) Erythrocyte distribution width [Ratio] by Automated count 13.2 % 11.6-13.7 [facility] ([facility]) MPV 8.8 FL 7.8-11.0 [facility] ([facility]) Mid % 4.5 % 1.7-9.3 [facility] ([facility]) Lymph % 19.0 % 10.0-58.5 [facility] ([facility]) Neut % 76.5 % 37.0-92.0 [facility] ([facility]) Lymph # 1.2 x10*3/UL 0.6-4.1 [facility] ([facility]) Mid # 0.3 x10*3/UL 0.1-0.6 [facility] ([facility]) Neut # 4.8 x10*3/UL 2.0-7.8 [facility] ([facility]) ID Date Data Source [id number] 08/03/2020 12:00:00 AM EDT [facility] Name Value Range Interpretation Code Description Data Yazmin rce(s) Supporting Document(s) SARS-CoV2 Rapid Antigen Negative [facility] This lab was reported by [facility]. Procedure Social History Code Duration Value Status Description Data Source(s ) Smoking 12/11/2020 12:00:00 AM EDT Patient has never smoked co mpleted Patient has never smoked [facility] ([facility], ) Vital Signs ID Date Data Source UNK Name Value Range Interpretation Code Description Data Source(s) Systolic blood pressure 120 mm[Hg] 120 mm[Hg] [facility] ([facility]) Diastolic blood pressure 70 mm[Hg] 70 mm[Hg] [facility] ([facility]) Heart rate 70 /min 70 /min [facility] ([facility]) Oxygen saturation in Arterial blood by Pulse oximetry 98 % 98 % [facility] ([facility]) Room Air Systolic blood pressure 118 mm[Hg] 118 mm[Hg] [facility] ([facility]) Diastolic blood pressure 80 mm[Hg] 80 mm[Hg] [facility] ([facility]) Oxygen saturation in Arterial blood by Pulse oximetry 98 % 98 % [facility] ([facility]) Room Air Body height 63 [in_i] 63 [in_i] [facility] ([facility]) 5'3" Body weight 147.00 [lb_av] 147.00 [lb_av] [facility] ([facility]) Body mass index (BMI) [Ratio] 26.0 kg/m2 26.0 k g/m2 [facility] ([facility]) [place] body weight 115 [lb_av] 115 [lb_av] [facility] ([facility]) Body weight 66.679 kg 66.679 kg [facility] ([facility]) Body surface area Derived from formula 1.70 m2 1.70 m2 [facility] ([facility]) Heart rate 74 /min 74 /min [facility] ([facility]) Oxygen saturation in Arterial blood by Pulse oximetry 98 % 98 % [facility] ([facility]) Room Air Body height 63 [in_i] 63 [in_i] [facility] ([facility]) 5'3" Body weight 147.00 [lb_av] 147.00 [lb_av] [facility] ([facility]) Body mass index (BMI) [Ratio] 26.0 kg/m2 26.0 k g/m2 [facility] ([facility]) [place] body weight 115 [lb_av] 115 [lb_av] [facility] [place] ([facility], ) Body weight 66.679 kg 66.679 kg [facility] ([facility]) Body surface area Derived from formula 1.70 m2 1.70 m2 [facility] ([facility]) Systolic blood pressure 126 mm[Hg] 126 mm[Hg] [facility] ([facility]) Oxygen saturation in Arterial blood by Pulse oximetry 98 % 98 % [facility] RM Air Diastolic blood pressure 64 mm[Hg] 64 mm[Hg] [facility] ([facility]) Body mass index (BMI) [Ratio] 27.8 kg/m2 27.8 k g/m2 [facility] Heart rate 77 /min 77 /min [facility] ([facility]) Body height 62.5 [in_i] 62.5 [in_i] [facility]) 5'2.50" Body weight 154.50 [lb_av] 154.50 [lb_av] [facility] [place] ([facility])
--- OUTSIDE RECORDS SUMMARY | 2021-02-13 12:47 | CCD | Continuity of Care Document ---
Author Author Trena ALEMAN MD Organization Unknown Address [address] [place] [id number] Phone [phone] Care Team Providers Care Grinding Machine Operator Automatic Name Role Phone TanyaVianney D.O. AUTM [phone] Problems Active Problems Provider Date Disturbance of [...] lb BMI (Body Mass Index) 26.0 kg/m2 [place] Body Weight 115 lb Weight 66.679 kg BSA (Body Surface Area) 1.70 m2 Results Description No Information Available Procedures Date Code Description Status 12/11/2020 80068 Office/Outpatient Established Lo w MDM 20-29 Min Completed 11/14/2020 98210 Diffusing Capacity Completed 11/14/2020 43267 Plethysmography Determination Niru ng Volumes & Per Airway Resist Completed 11/14/2020 72181 Bronchospasm Evaluation Complete d 10/18/2020 51783 Office/Outpatient Established Mo d MDM 30-39 Min Completed Medical Devices Description No Information Available Encounters Type Date Location Provider Dx Diagnosis Office Visit 12/11/2020 3:15p [facility] Kristy Aleman MD G47.33 Obstructive sleep apnea (adult) (pediatr ic) J30.9 Allergic rhinitis, unspecifi ed R06.02 Shortness of breath Office Visit 10/18/2020 9:45a [facility] Kristy Aleman MD G47.33 Obstructive sleep apnea (adult) [...] * R06.02 Shortness of breath * * Comments:* ~ At this point, she is to continue her current regimen. No changes were made. She was applauded for her compliance. She stays active. She is up to date on masks, filters and supplies. ~ I will see her, at least, yearly regarding her sleep apnea or, certainly, sooner if problems arise with which we can be of assistance. * Follow up:* 12 months....no testing Functional Status Description No Information Available Mental Status Description No Information Available Referrals Description No Information Available
[2021-02-13] MEDS ORDERED: ACETAMINOPHEN TAB 650MG DOSE (2X325MG) PO ONE (13:20)
[2021-02-13 13:36] LABS: BASO # 0.1 10^3/uL (0.0-0.2); BASO % 0.4 % (0.0-1.0); EOS # 0.1 10^3/uL (0.0-0.5); EOS % 0.6 % (0.0-3.0); HEMATOCRIT 42.3 % (36.0-47.0); HEMOGLOBIN 13.8 g/dl (12.0-15.5); LYMPH # 0.3 10^3/uL (1.5-5.0); MEAN CORPUSCULAR HEMOGLOBIN 28.8 pg (27.0-33.0); MEAN CORPUSCULAR HGB CONC 32.6 g/dl (32.0-36.5); MEAN CORPUSCULAR VOLUME 88.1 fl (80.0-96.0); MONO # 1.8 10^3/uL (0.0-0.8); MONO % 10.9 % (2.0-8.0); NEUTROPHILS # 13.6 10^3/uL (1.5-8.5); NEUTROPHILS % 83.7 % (36.0-66.0); PLATELET COUNT, AUTOMATED 435 10^3/uL (150-450); WHITE BLOOD COUNT 16.3 10^3/uL (4.0-10.0)
--- NOTE | 2021-02-13 13:48 | REP ---
INDICATION: SOB hypoxia covid positive. COMPARISON: Multiple latest 10/18/2020 TECHNIQUE: Portable FINDINGS: The cardiomediastinal silhouette is unchanged. The radiograph is mislabeled indicating improper laterality. The technique utilized in obtaining the radiograph has magnified the cardiac silhouette and accentuated the interstitial markings. The basilar interstitial markings have increased from the prior exam. In addition, focal airspace opacities appear to be developing in the left upper lobe. The pleural angles are sharp. There is no change in the osseous structures. IMPRESSION: Possible developing pneumonia as described above. <Electronically signed by Eloy Vegas > 02/13/21 1278
[2021-02-13 14:04] LABS: ALBUMIN 2.6 GM/DL (3.2-5.2); ALT/SGPT 75 U/L (12-78); BILIRUBIN,DIRECT 0.5 MG/DL (0.0-0.2); BILIRUBIN,TOTAL 1.5 MG/DL (0.2-1.0); BLOOD UREA NITROGEN 17 MG/DL (7-18); CALCIUM LEVEL 8.5 MG/DL (8.8-10.2); CARBON DIOXIDE LEVEL 26 MEQ/L (21-32); CHLORIDE LEVEL 101 MEQ/L (98-107); CK-MB VALUE MASS < 1.0 NG/ML (<3.6); CPK CREATINE PHOSPHOKINASE 17 U/L (26-192); CREATININE FOR GFR 0.75 MG/DL (0.55-1.30); GLOMERULAR FILTRATION RATE > 60.0 (>39); GLUCOSE, FASTING 111 MG/DL (70-100); MB/CK RELATIVE INDEX 5.88 (< OR =4); NT-PRO BNP 216 PG/ML (<125); POTASSIUM SERUM 3.5 MEQ/L (3.5-5.1); SODIUM LEVEL 136 MEQ/L (136-145); THYROID STIMULATING HORMONE 0.748 uIU/ML (0.358-3.740); TOTAL PROTEIN 6.6 GM/DL (6.4-8.2); TROPONIN I < 0.02 NG/ML (< 0.10)
--- OUTSIDE RECORDS SUMMARY | 2021-02-13 14:25 | CCD ---
Author Author [facility] Organization [facility] Address Unknown Phone Unavailable Care Team Providers Care Data Designer Name Role Phone Bud THIBODEAUX. SENIOR LICENSING MANAGER DAISHA Unavailable [phone] CARLOS EDUARDO, A. SENIOR LICENSING MANAGER DAISHA Unavailable [phone] CARLOS EDUARDO, A. SENIOR LICENSING MANAGER DAISHA Unavailable [phone] CARLOS EDUARDO, A. SENIOR LICENSING MANAGER DAISHA Unavailable [phone] CARLOS EDUARDOLeslie CULLEN SENIOR LICENSING MANAGER DAISHA Unavailable [phone] CARLOS EDUARDO, A. SENIOR LICENSING MANAGER DAISHA Unavailable [phone] CARLOS EDUARDO, A. SENIOR LICENSING MANAGER DAISHA Unavailable [phone] CARLOS EDUARDO, A. SENIOR LICENSING MANAGER DAISHA Unavailable [phone] CARLOS EDUARDO, A. SENIOR LICENSING MANAGER DAISHA Unavailable [phone] CARLOS EDUARDO, A. SENIOR LICENSING MANAGER DAISHA Unavailable [phone] CARLOS EDUARDO, A. SENIOR LICENSING MANAGER DAISHA Unavailable [phone] CARLOS EDUARDO, A. SENIOR LICENSING MANAGER DAISHA Unavailable [phone] CARLOS EDUARDO, A. SENIOR LICENSING MANAGER DAISHA Unavailable [phone] Bud THIBODEAUX. SENIOR LICENSING MANAGER DAISHA Unavailable [phone] CARLOS EDUARDO, Bud. SENIOR LICENSING MANAGER DAISHA Unavailable [phone] Tanya, Vianney DO Unavailable Unavailable Tanya, [...] is protected by Article 27-F of the [facility] Public Health law. If you continue you may have access to information: Regarding HIV / AIDS; Provided by facilities licensed or operated by the [facility] Office of Mental Health; or Provided by the [facility] Office for People With Developmental Disabilities. If such information is present, then the following [facility] mandated warning applies: This information has [...] law may result in a fine or long term sentence or both. A general authorization for [...] EDT - 02/13/2021 12:11:09 PM EDT [facility] ([facility] ) Outpatient Attender: Jun Pena/Magno/Nacho/Argenis eindelda 12/11/2020 03:15:00 PM EDT [facility] ([facility]) Outpatient Attender: Jun Pena/Magno/Nacho/Argenis eindelda 10/18/2020 09:45:00 AM EDT [facility] ([facility]) Outpatient Attender: Vianney Milligan 10/16 08:00:00 AM EDT [facility] ([facility] ) Immunizations Vaccine Date Status Description Data Source(s) Shingrix Zoster Vaccine (HZV), Recombinant, Subunit, A djuvanted 10/16/2020 08:11:00 AM EDT completed [facility] ([place] [facility]) This CVX code allows reporting of a vacc ination when formulation is unknown (for example, when recording a Influenza vaccination when noted on a vaccination card) 10/16/2020 08:11:00 AM EDT completed MEDEN T ([facility]) PNEUMOC 13-YAZMIN CONJ-DIP CRM/PF 10/16/2020 12:00:00 [...] Azelastine hydrochloride 0.206 MG/ACTUAT Metered Dose Nasal [place] 205.5 mcg (0.15 %) AZELASTINE HCL 10/31/2020 12:00:00 AM EDT spray,non-aerosol 30 SPRAY 1 SPRAY IN EACH NOSTRIL ONCE A DAY NEEDED SPRAY 1 SPRAY IN EACH NOSTRIL ONCE A DAY NEEDED SOLD: 11/02/2020 [facility] Nystatin 657763 UNT/ML / Triamcinolone A cetonide 1 MG/ML [...] NEEDED SOLD: 01/23/2021 [facility] Nystatin 273284 UNT/ML Oral Suspension Nystatin 10/16/2020 12:00:00 AM EDT active [facility] ([facility]) 100,000 unit/mL 10/16/2020 12:00:00 [...] Streptococcus pneumoniae serotype 1 capsular antigen diphtheria [id number] protein conjugate vaccine 0.0044 MG/ML / Streptococcus pneumoniae serotype 14 capsular antigen diphtheria [id number] protein conjugate vaccine 0.0044 MG/ML / Streptococcus pneumonia Prevnar 13 10/16/2020 12:00:00 AM EDT active [facility]) Shingrix Shingrix 10/16/2020 12:00:00 AM EDT activ e [facility] ([facility]) 150 mg 09/20/2020 12:00:00 AM EDT [...] THEN TAKE ONE DAILY THEREAFTER SOLD: 08/02/2020 [facility] Zithromax Z-Fredy Zithromax Z-Fredy 08/02/2020 12:00:00 AM EDT ORAL active [facility] ([facility]) 150 mg 02/20/2020 12:00:00 AM [...] [facility] Covid-19 vaccine, Unspecified completed [facility] ([facility]) Insurance Providers Payer name Policy type / Coverage type Policy ID Covered constitution party ID Covered constitution party's relationship to medel Policy Medel Plan Information [facility] Dragon [employer] Medigap Part B [id number] Self [id number] [facility] [employer] Law/[employer] Commercial [id number] Self [id number] MEDICARE [id number] SP [id number] Medicare Natl Govt Servic Medicare Primary [id number] Self [id number] Medicare Natl Govt Servic Medicare Primary [id number] Self Medicare Natl Govt Servic Medicare Primary [id number] Self [id number] Medicare Natl Govt Servic Medicare Primary [id number] Self [id number] MEDICARE [id number] SP [id number] A MEDICARE A [id number] Self [id number] A [facility] A [facility] C [id number] SELF [id number] Medicare C [id number] SELF [id number] A Medicare C [id number] SELF [id number] A Medicare C [id number] SELF [id number] A MEDICARE [id number] Zayra [id number] A Medicare Blue Ppo Commercial [id number] Self [id number] Medicare Blue Ppo Commercial [id number] Self [id number] Medicare Blue Ppo Commercial [id number] [id number] Self [id number] Medicare Blue Ppo Commercial [id number] Self [id number] Medicare Blue Ppo Commercial [id number] Self [id number] P Healthcare F [id number] SELF [id number] Medicare C [id number] SELF [id number] A MVP Healthcare F [id number] SELF [id number] DME Jurisdiction A [facility] C [id number] SELF [id number] P H [id number] Self [id number] 001 [facility] Healthcare Commercial Indemnity [id number] Inde mnity P [id number] Zayra [id number] 001 [facility] Healthcare Commercial [id number] [facility] Healthcare F [id number] SELF [id number] [facility] [id number] Zayra [id number] 001 [facility] [id number] Zayra [id number] Medicare C [id number] SELF [id number] [id number] DME Jurisdiction A [facility] C [id number] SELF [id number] [place] Medicare Part B [id number] Self [id number] [facility] Health Care Commercial Insurance Co. [id number] Self [id number] Medicare [place] Medicare Primary [id number] Self [id number] [facility] Health Maintenance Organization (HMO) [id number] Self [id number] Medicare Natl Gov't Servi Medicare Primary [id number] Self [id number] [facility] Commercial [id number] Family Dependent [id number] MEDICARE C [id number] S [id number] A [facility] HEALTH CARE O [id number] P [id number] Medicare [place] Medicare Primary [id number] Self [id number] MVP [id number] Spo [id number] Medicare Medicare Primary [id number] Self [id number] [facility] Health Plans Commercial [id number] Family Dependent [id number] [facility] Health Care Health Maintenance Organization (HMO) [id number] Self [id number] Medicare Natl Gov't Servi Medicare Primary [id number] Self [id number] Medicare Medicare Primary [id number] Self [id number] [facility] Commercial [id number] Self [id number] [facility] Health Maintenance Organization (HMO) [id number] Self [id number] Medicare - NGS Medicare Primary [id number] Self [id number] [facility] HEALTH CARE [id number] SP 82 [id number] Medicare Blue Ppo Commercial Plan Three [id number] Self Plan Three Medicare Blue Ppo Commercial [id number] Self [id number] MEDICARE C [id number] S [id number] P HEALTH CARE O [id number] S 82 [id number] [facility] HEALTH CARE [id number] SP [id number] P HEALTH CARE [id number] HU2 82 [id number] MVP Commercial [id number] Family Dependent Medicare Natl Gov't Servi Medicare Primary [id number] Self MVP [id number] 18 [id number] Medicare [place] Division [id number] 18 [id number] P HEALTH CARE O [id number] P 82 [id number] MEDICARE BLUE PPO C [id number] S [id number] [facility] [id number] [facility] [id number] [facility] [id number] 18 [id number] MEDICARE BLUE PPO 306 [id number] SP [id number] MEDICARE [id number] SP [id number] A MEDICARE BLUE PPO 306 [id number] SP [id number] MEDICARE PI PI [id number] [facility] PI PI Problems, Conditions, and Diagnoses No Information Surgeries/Procedures Procedure Description Date Indications Data Source(s) OFFICE OUTPATIENT VISIT 15 MINUTES 12/11/2020 12:00:00 AM EDT [facility] ([facility]) Bronchospasm Evaluation 11/14/2020 12:00:00 AM EDT [facility] ([facility]) Plethysmography Determination Lung Volumes & Per Airway Resi st 11/14/2020 12:00:00 AM EDT [facility] DIFFUSING CAPACITY 11/14/2020 12:00:00 AM EDT [facility] ([facility]) OFFICE OUTPATIENT VISIT 25 MINUTES 10/18/2020 12:00:00 AM EDT [facility] ([facility]) OFFICE OUTPATIENT VISIT 15 MINUTES 10/16/2020 12:00:00 AM EDT [facility] ([facility]) Results ID Date Data Source [id number] 10/16/2020 08:36:00 AM EDT [facility] ([facility]) Name Value Range Interpretation Code Description Data Yazmin rce(s) Supporting Document(s) Cholesterol [Mass/volume] in Serum or Plasma 245 mg/dL 131-200 [facility] ([facility]) Triglyceride [Mass/volume] in Serum or Plasma 78 mg/dL 30-150 [facility] ([facility]) Cholesterol in LDL [Mass/volume] in Serum or Plasma by calcu lation 153 CALC 50-159 [facility] ([facility]) Cholesterol in HDL [Mass/volume] in Serum or Plasma 76 mg/dL 35-60 [facility] ([facility]) ID Date Data Source [id number] 10/16/2020 08:36:00 AM EDT [facility] ([facility]) Name Value Range Interpretation Code Description Data Yazmin rce(s) Supporting Document(s) Glucose [Mass/volume] in Serum or Plasma 91 mg/dL 74-99 [facility] ([facility]) 100-125 mg/dL PRE-DIABETES/FASTING >126 mg/dL DIABETES/FASTING Urea nitrogen [Mass/volume] in Serum or Plasma 26 mg/dL 7-18 [facility] ([facility]) Sodium [Moles/volume] in Serum or Plasma 142 meq/L 136-145 [facility] ([facility]) Creatinine 0.8 mg/dL 0.6-1.3 [facility] Potassium [Moles/volume] in Serum or Plasma 4.4 meq/L 3.5-5.1 [facility] ([facility]) Chloride [Moles/volume] in Serum or Plasma 104 meq/L 98-107 [facility] ([facility]) Carbon dioxide, total [Moles/volume] in Serum or Plasma 29 meq/L 21 -32 [facility] ([facility]) Calcium [Mass/volume] in Serum or Plasma 9.1 mg/dL 8.5-10.1 [facility] ([facility]) Alkaline phosphatase isoenzyme [Units/volume] in Serum or Pl asma 57 mg/dL 46-116 [facility] ([facility]) Aspartate aminotransferase [Enzymatic activity/volume] in Serum or Plasma 23 U/L 15-37 [facility] ([facility] ) Total Bilirubin 0.7 mg/dL 0.2-1.0 [facility] Alanine aminotransferase [Enzymatic activity/volume] in Seru m or Plasma 38 U/L 12-78 [facility]) Proteinase 3 Ab [Units/volume] in Serum 6.5 g/dL 6.4-8.2 [facility] ([facility]) Albumin [Mass/volume] in Serum or Plasma 3.8 g/dL 3.4-5.0 [facility]) A/G Ratio 1.41 CALC 1.00-1.90 [facility]) Glomerular filtration rate/1.73 sq M pre dicted among blacks [Volume Rate/Area] in Serum or Plasma by Creatinine-based formula (MDRD) Laboratory test result [facility] <content>CHRONIC KIDNEY DISEASE STAGING PER NKF</content>
<content></content>
<content>STAGE I & II GFR >= 60 NORMAL TO MILDLY DECREASED</content>
<content>STAGE III GFR 30-59 MODERATELY DECREASED</content>
<content>STAGE IV GFR 15-29 SEVERELY DECREASED</content>
<content>STAGE V GFR <15 VERY LITTLE GFR LEFT</content>
<content>ESRD GFR <15 ON CHECKROOM ATTENDANT</content>
<content></content> Glomerular filtration rate/1.73 sq M pre dicted among non-blacks [Volume Rate/Area] in Serum or Plasma by Creatinine-based formula (MDRD) Laboratory test result [facility] ([facility] ) ID Date Data Source [id number] 10/16/2020 08:36:00 AM EDT [facility] ([facility] Name Value Range Interpretation Code Description Data Yazmin rce(s) Supporting Document(s) Leukocytes [#/volume] in Blood by Automated count 6.3 x10*3/UL 4.1-10 .9 [facility] ([facility]) Hemoglobin [Mass/volume] in Blood 13.7 g/dL 12.0-18.0 [facility] ([facility]) Erythrocytes [#/volume] in Blood by Automated count 4.62 x10*6/UL 4.2 0-6.30 [facility] ([facility]) Hematocrit [Volume Fraction] of Blood by Automated count 40.4 % 3 7.0-51.0 [facility] ([facility]) MCHC 34.0 g/dL 31.0-38.0 [facility] ([place] [facility]) MCH 29.7 pg 26.0-32.0 [facility] ([place] [facility]) MCV 87.4 fL 80.0-97.0 [facility] ([facility] [facility]) Platelets [#/volume] in Blood by Automated count 281 x10*3/UL 140-440 [facility] ([facility]) Erythrocyte distribution width [Ratio] by Automated count 13.2 % 11.6-13.7 [facility] ([facility]) MPV 8.8 FL 7.8-11.0 [facility] ([facility] [facility]) Mid % 4.5 % 1.7-9.3 [facility] ([facility] [facility]) Lymph % 19.0 % 10.0-58.5 [facility] ([facility] [facility]) Neut % 76.5 % 37.0-92.0 [facility] ([facility] [facility]) Lymph # 1.2 x10*3/UL 0.6-4.1 [facility] ([facility]) Mid # 0.3 x10*3/UL 0.1-0.6 [facility] ([facility]) Neut # 4.8 x10*3/UL 2.0-7.8 [facility] ([facility]) ID Date Data Source [id number] 08/03/2020 12:00:00 AM EDT [facility] Name Value Range Interpretation Code Description Data Yazmin rce(s) Supporting Document(s) SARS-CoV2 Rapid Antigen Negative [facility] This lab was reported by Ang Brown. Procedure Social History Code Duration Value Status Description Data Source(s ) Smoking 12/11/2020 12:00:00 AM EDT Patient has never smoked co mpleted Patient has never smoked [facility] ([facility], ) Vital Signs ID Date Data Source UNK Name Value Range Interpretation Code Description Data Source(s) Systolic blood pressure 120 mm[Hg] 120 mm[Hg] [facility] ([facility]) Diastolic blood pressure 70 mm[Hg] 70 mm[Hg] [facility] ([facility]) Heart rate 70 /min 70 /min [facility] ([facility]) Oxygen saturation in Arterial blood by Pulse oximetry 98 % 98 % [facility] ([facility]) Room Air Systolic blood pressure 118 mm[Hg] 118 mm[Hg] [facility] ([facility]) Diastolic blood pressure 80 mm[Hg] 80 mm[Hg] [facility] ([facility]) Oxygen saturation in Arterial blood by Pulse oximetry 98 % 98 % [facility] ([facility]) Room Air Body height 63 [in_i] 63 [in_i] [facility] ([facility]) 5'3" Body weight 147.00 [lb_av] 147.00 [facility]_av] [facility] Oxygen saturation in Arterial blood by Pulse oximetry 98 % 98 % [facility] ([facility]) Room Air Body height 63 [in_i] 63 [in_i] [facility] ([facility]) 5'3" Body weight 147.00 [lb_av] 147.00 [lb_av] [facility] Body mass index (BMI) [Ratio] 26.0 kg/m2 26.0 k g/m2 [facility] ([facility]) [place] body weight 115 [lb_av] 115 [lb_av] [facility] ([facility]) Body weight 66.679 kg 66.679 kg [facility] ([facility]) Body surface area Derived from formula 1.70 m2 1.70 m2 [facility] ([facility]) Heart rate 74 /min 74 /min [facility] ([facility]) Body mass index (BMI) [Ratio] 26.0 kg/m2 26.0 k g/m2 [facility] ([facility]) [place] body weight 115 [lb_av] 115 [lb_av] [facility] ([facility], ) Body weight 66.679 kg 66.679 kg [facility] ([facility]) Body surface area Derived from formula 1.70 m2 1.70 m2 [facility] ([facility]) Systolic blood pressure 126 mm[Hg] 126 mm[Hg] [facility] ([facility]) Diastolic blood pressure 64 mm[Hg] 64 mm[Hg] [facility] ([facility]) Heart rate 77 /min 77 /min [facility] ([facility]) Body height 62.5 [in_i] 62.5 [in_i] [facility] 5'2.50" Body weight 154.50 [lb_av] 154.50 [lb_av] [facility] [place] ([facility]) Oxygen saturation in Arterial blood by Pulse oximetry 98 % 98 % [facility] Air Body mass index (BMI) [Ratio] 27.8 kg/m2 27.8 k g/m2 [facility] ([facility])
[2021-02-13] MEDS ORDERED: ISOVUE-370 76% 100ML VIAL As Ordered ONE (14:50)
[2021-02-13] MEDS ORDERED: ESSETAB4 PO (16:38)
[2021-02-13] MEDS ORDERED: HOME MED LIST COMPLETE! XX SCH (16:40)
--- OUTSIDE RECORDS SUMMARY | 2021-02-13 16:45 | CCD ---
Author Author [facility] Organization [facility] Address Unknown Phone Unavailable Care Team Providers Care Wrap Knitting Machine Operator Name Role Phone Bud THIBODEAUX. BEAUTY DIRECTOR DAISHA Unavailable [phone] CARLOS EDUARDO, Bud. BEAUTY DIRECTOR DAISHA Unavailable [phone] CARLOS EDUARDO, A. BEAUTY DIRECTOR DAISHA Unavailable [phone] CARLOS EDUARDO, A. BEAUTY DIRECTOR DAISHA Unavailable [phone] CARLOS EDURADOLeslie CULLEN BEAUTY DIRECTOR DAISHA Unavailable [phone] CARLOS EDUARDO, A. BEAUTY DIRECTOR DAISHA Unavailable [phone] CARLOS EDUARDO, A. BEAUTY DIRECTOR DAISHA Unavailable [phone] CARLOS EDUARDO, A. BEAUTY DIRECTOR DAISHA Unavailable [phone] CARLOS EDUARDO, A. BEAUTY DIRECTOR DAISHA Unavailable [phone] CARLOS EDUARDO, A. BEAUTY DIRECTOR DAISHA Unavailable [phone] CARLOS EDUARDO, A. BEAUTY DIRECTOR DAISHA Unavailable [phone] CARLOS EDUARDO, A. BEAUTY DIRECTOR DAISHA Unavailable [phone] CARLOS EDUARDOLeslie CULLEN BEAUTY DIRECTOR DAISHA Unavailable [phone] CARLOS EDUARDO, A. BEAUTY DIRECTOR DAISHA Unavailable [phone] CARLOS EDUARDO, A. BEAUTY DIRECTOR DAISHA Unavailable [phone] Tanya, Vianney DO Unavailable Unavailable Tanya, [...] is protected by Article 27-F of the [facility] Public Health law. If you continue you may have access to information: Regarding HIV / AIDS; Provided by facilities licensed or operated by the [facility] Office of Mental Health; or Provided by the [facility] Office for People With Developmental Disabilities. If such information is present, then the following [facility] mandated warning applies: This information has [...] law may result in a fine or residential sentence or both. A general authorization for [...] EDT - 02/13/2021 12:11:09 PM EDT [facility] ([facility] ) Outpatient Attender: Jun Pena/Magno/Nacho/Argenis eindelda 12/11/2020 03:15:00 PM EDT [facility] ([facility], ) Outpatient Attender: Jun Pena/Magno/Nacho/Argenis eialbert 10/18/2020 09:45:00 AM EDT [facility] ([facility], ) Outpatient Attender: Vianney Milligan 10/16 08:00:00 AM EDT [facility] ([facility] ) Immunizations Vaccine Date Status Description Data Source(s) Shingrix Zoster Vaccine (HZV), Recombinant, Subunit, A djuvanted 10/16/2020 08:11:00 AM EDT completed [facility] ([facility]) This CVX code allows reporting of a vacc ination when formulation is unknown (for example, when recording a Influenza vaccination when noted on a vaccination card) 10/16/2020 08:11:00 AM EDT completed MEDEN T ([facility]) PNEUMOC 13-YAZMIN CONJ-DIP CRM/PF 10/16/2020 12:00:00 [...] MOUTH EVERY MORNING FOR 5 DAYS LIND[facility] Azelastine hydrochloride 0.206 MG/ACTUAT Metered Dose Nasal [place] 205.5 mcg (0.15 %) AZELASTINE HCL 10/31/2020 12:00:00 AM EDT spray,non-aerosol 30 SPRAY 1 SPRAY IN EACH NOSTRIL ONCE A DAY NEEDED SPRAY 1 SPRAY IN EACH NOSTRIL ONCE A DAY NEEDED SOLD: 11/02/2020 [facility] Nystatin 666431 UNT/ML / Triamcinolone A cetonide 1 MG/ML [...] NEEDED SOLD: 01/23/2021 [facility] Nystatin [id number] UNT/ML Oral Suspension Nystatin 10/16/2020 12:00:00 AM EDT active [facility] ([facility]) 100,000 unit/mL 10/16/2020 12:00:00 AM EDT [...] Streptococcus pneumoniae serotype 1 capsular antigen diphtheria [id number] protein conjugate vaccine 0.0044 MG/ML / Streptococcus pneumoniae serotype 14 capsular antigen diphtheria [id number] protein conjugate vaccine 0.0044 MG/ML / Streptococcus pneumonia Prevnar 13 10/16/2020 12:00:00 AM EDT active [facility] Shingrix Shingrix 10/16/2020 12:00:00 AM EDT activ e [facility] ([facility]) 150 mg 09/20/2020 12:00:00 AM EDT [...] 08/02/2020 12:00:00 AM EDT ORAL active [facility] ([facility]) 150 mg 02/20/2020 12:00:00 AM [...] [facility] Covid-19 vaccine, Unspecified completed [facility] ([facility]) Insurance Providers Payer name Policy type / Coverage type Policy ID Covered alliance party ID Covered alliance party's relationship to medel Policy Medel Plan Information [facility] [employer] Commercial [id number] Self [id number] [facility] [employer] Medigap Part B [id number] Self [id number] Medicare Natl Govt Servic Medicare Primary [id number] Self [id number] Medicare Natl Govt Servic Medicare Primary [id number] Self Medicare Natl Govt Servic Medicare Primary [id number] Self [id number] Medicare Natl Govt Servic Medicare Primary [id number] Self [id number] MEDICARE [id number] SP [id number] A MEDICARE [id number] SP [id number] MEDICARE A [id number] Self [id number] A [facility] Jurisdiction A [facility] C [id number] SELF [id number] Medicare C [id number] SELF [id number] A Medicare C [id number] SELF [id number] A Medicare C [id number] SELF [id number] A MEDICARE [id number] Zayra [id number] A Medicare Blue Ppo Commercial [id number] [id number] Self [id number] Medicare Blue Ppo Commercial [id number] Self [id number] Medicare Blue Ppo Commercial [id number] Self 3 Medicare Blue Ppo Commercial [id number] Self [id number] Medicare Blue Ppo Commercial [id number] Self [id number] [facility] Healthcare F [id number] SELF [id number] [facility] Healthcare Commercial Indemnity [id number] Inde mnity P Healthcare F [id number] SELF [id number] P Healthcare F [id number] SELF [id number] DME Jurisdiction A [facility] C [id number] SELF [id number] Medicare C [id number] SELF [id number] A P H [id number] Self [id number] [facility] Healthcare Commercial [id number] [facility] [id number] Zayra [id number] P [id number] Zayra [id number] MVP [id number] Zayra [id number] 001 Medicare C [id number] SELF [id number] V54 DME Jurisdiction A [facility] C [id number] SELF [id number] [facility] Health Care Commercial Insurance Co. [id number] Self [id number] [place] Medicare Part B [id number] Self [id number] [place] Medicare Primary [id number] Self [id number] [facility] Health Maintenance Organization (HMO) [id number] Self [id number] Medicare Natl Gov't Servi Medicare Primary [id number] Self [id number] [facility] Commercial [id number] Family Dependent [id number] MEDICARE C [id number] S [id number] A [facility] HEALTH CARE O [id number] P [id number] [facility] HEALTH CARE [id number] SP [id number] [place] Primary [id number] Self [id number] P [id number] Spo [id number] Medicare Medicare Primary [id number] Self [id number] [employer] Plans Commercial [id number] Family Dependent [id number] [facility] Health Care Health Maintenance Organization (HMO) [id number] Self [id number] Medicare Natl Gov't Servi Medicare Primary [id number] Self [id number] Medicare Medicare Primary [id number] Self [id number] [facility] Commercial [id number] Self [id number] [facility] Health Maintenance Organization (HMO) [id number] 1 [id number] Self [id number] Medicare - NGS Medicare Primary [id number] Self [id number] [facility] HEALTH CARE [id number] SP [id number] Medicare Blue Ppo Commercial Plan [id number] Self Plan Three Medicare Blue Ppo Commercial [id number] Self [id number] MEDICARE C [id number] S [id number] P HEALTH CARE O [id number] S 82 [id number] MVP HEALTH CARE [id number] HU2 82 [id number] MVP Commercial [id number] Family Dependent Medicare Natl Gov't Servi Medicare Primary [id number] Self MVP [id number] 18 [id number] 001 Medicare [place] Division [id number] 18 [id number] MVP HEALTH CARE O [id number] P [id number] MEDICARE BLUE PPO C [id number] S [id number] [facility] [id number] 2 [id number] MVP [id number] 18 [id number] 001 MEDICARE BLUE PPO 306 [id number] SP [id number] MEDICARE [id number] SP [id number] A MEDICARE BLUE PPO 306 [id number] SP [id number] MEDICARE PI PI [id number] [facility] PI PI Problems, Conditions, and Diagnoses No Information Surgeries/Procedures Procedure Description Date Indications Data Source(s) OFFICE OUTPATIENT VISIT 15 MINUTES 12/11/2020 12:00:00 AM EDT [facility] ([facility]) Bronchospasm Evaluation 11/14/2020 12:00:00 AM EDT [facility] ([facility]) Plethysmography Determination Lung Volumes & Per Airway Resi st 11/14/2020 12:00:00 AM EDT [facility] ([facility], ) DIFFUSING CAPACITY 11/14/2020 12:00:00 AM EDT [facility] ([facility]) OFFICE OUTPATIENT VISIT 25 MINUTES 10/18/2020 12:00:00 AM EDT [facility] ([facility]) OFFICE OUTPATIENT VISIT 15 MINUTES 10/16/2020 12:00:00 AM EDT [facility] ([facility]) Results ID Date Data Source [id number] 10/16/2020 08:36:00 AM EDT [facility] ([facility]) Name Value Range Interpretation Code Description Data Yazmin rce(s) Supporting Document(s) Cholesterol [Mass/volume] in Serum or Plasma 245 mg/dL 131-200 [facility] ([facility]) Triglyceride [Mass/volume] in Serum or Plasma 78 mg/dL 30-150 [facility] ([facility]) Cholesterol in LDL [Mass/volume] in Serum or Plasma by calcu lation 153 CALC 50-159 [facility] ([facility]) Cholesterol in HDL [Mass/volume] in Serum or Plasma 76 mg/dL 35-60 [facility] ([facility]) ID Date Data Source [id number] 10/16/2020 08:36:00 AM EDT [facility] ([facility]) Name Value Range Interpretation Code Description Data Yazmin rce(s) Supporting Document(s) Glucose [Mass/volume] in Serum or Plasma 91 mg/dL 74-99 [facility] ([facility]) 100-125 mg/dL PRE-DIABETES/FASTING >126 mg/dL DIABETES/FASTING Urea nitrogen [Mass/volume] in Serum or Plasma 26 mg/dL 7-18 [facility] ([facility]) Sodium [Moles/volume] in Serum or Plasma 142 meq/L 136-145 [facility] ([facility]) Creatinine 0.8 mg/dL 0.6-1.3 [facility] Potassium [Moles/volume] in Serum or Plasma 4.4 meq/L 3.5-5.1 [facility] ([facility]) Chloride [Moles/volume] in Serum or Plasma 104 meq/L 98-107 [facility] ([facility]) Carbon dioxide, total [Moles/volume] in Serum or Plasma 29 meq/L 21 -32 [facility] ([facility]) Calcium [Mass/volume] in Serum or Plasma 9.1 mg/dL 8.5-10.1 [facility] ([facility]) Alkaline phosphatase isoenzyme [Units/volume] in Serum or Pl asma 57 mg/dL 46-116 [facility] ([facility]) Aspartate aminotransferase [Enzymatic activity/volume] in Serum or Plasma 23 U/L 15-37 [facility] ([facility] ) Total Bilirubin 0.7 mg/dL 0.2-1.0 [facility] ([facility]) Alanine aminotransferase [Enzymatic activity/volume] in Seru m or Plasma 38 U/L 12-78 [facility] ([facility]) Proteinase 3 Ab [Units/volume] in Serum 6.5 g/dL 6.4-8.2 [facility] ([facility]) Albumin [Mass/volume] in Serum or Plasma 3.8 g/dL 3.4-5.0 [facility] ([facility]) A/G Ratio 1.41 CALC 1.00-1.90 [facility] ([facility]) Glomerular filtration rate/1.73 sq M pre dicted among blacks [Volume Rate/Area] in Serum or Plasma by Creatinine-based formula (MDRD) Laboratory test result [facility] <content>CHRONIC KIDNEY DISEASE STAGING PER NKF</content>
<content></content>
<content>STAGE I & II GFR >= 60 NORMAL TO MILDLY DECREASED</content>
<content>STAGE III GFR 30-59 MODERATELY DECREASED</content>
<content>STAGE IV GFR 15-29 SEVERELY DECREASED</content>
<content>STAGE V GFR <15 VERY LITTLE GFR LEFT</content>
<content>ESRD GFR <15 ON ADOBE LAYER HELPER</content>
<content></content> Glomerular filtration rate/1.73 sq M pre dicted among non-blacks [Volume Rate/Area] in Serum or Plasma by Creatinine-based formula (MDRD) Laboratory test result [facility] ([facility] ) ID Date Data Source [id number] 10/16/2020 08:36:00 AM EDT [facility] ([facility]) Name Value Range Interpretation Code Description Data Yazmin rce(s) Supporting Document(s) Leukocytes [#/volume] in Blood by Automated count 6.3 x10*3/UL 4.1-10 .9 [facility] ([facility]) Hemoglobin [Mass/volume] in Blood 13.7 g/dL 12.0-18.0 [facility] ([facility]) Erythrocytes [#/volume] in Blood by Automated count 4.62 x10*6/UL 4.2 0-6.30 [facility] ([facility]) Hematocrit [Volume Fraction] of Blood by Automated count 40.4 % 3 7.0-51.0 [facility] ([facility]) MCHC 34.0 g/dL 31.0-38.0 [facility] ([facility]) MCH 29.7 pg 26.0-32.0 [facility] ([facility]) MCV 87.4 fL 80.0-97.0 [facility] ([facility]) Platelets [#/volume] in Blood by Automated count 281 x10*3/UL 140-440 [facility] ([facility]) Erythrocyte distribution width [Ratio] by Automated count 13.2 % 11.6-13.7 [facility] ([facility]) MPV 8.8 FL 7.8-11.0 [facility] ([facility]) Mid % 4.5 % 1.7-9.3 [facility] ([facility]) Lymph % 19.0 % 10.0-58.5 [facility] ([facility]) Neut % 76.5 % 37.0-92.0 [facility] ([facility]) Lymph # 1.2 x10*3/UL 0.6-4.1 [facility] ([facility]) Mid # 0.3 x10*3/UL 0.1-0.6 [facility] ([facility]) Neut # 4.8 x10*3/UL 2.0-7.8 [facility] ([facility]) ID Date Data Source [id number] 08/03/2020 12:00:00 AM EDT [facility] Name Value Range Interpretation Code Description Data Yazmin rce(s) Supporting Document(s) SARS-CoV2 Rapid Antigen Negative [facility] This lab was reported by Ang Brown. Procedure Social History Code Duration Value Status Description Data Source(s ) Smoking 12/11/2020 12:00:00 AM EDT Patient has never smoked co mpleted Patient has never smoked [facility] ([facility], ) Vital Signs ID Date Data Source UNK Name Value Range Interpretation Code Description Data Source(s) Systolic blood pressure 120 mm[Hg] 120 mm[Hg] [facility] ([facility]) Diastolic blood pressure 70 mm[Hg] 70 mm[Hg] [facility] ([facility]) Heart rate 70 /min 70 /min [facility] ([facility]) Oxygen saturation in Arterial blood by Pulse oximetry 98 % 98 % [facility] ([facility]) Room Air Systolic blood pressure 118 mm[Hg] 118 mm[Hg] [facility] ([facility]) Diastolic blood pressure 80 mm[Hg] 80 mm[Hg] [facility] ([facility]) Oxygen saturation in Arterial blood by Pulse oximetry 98 % 98 % [facility] ([facility]) Room Air Body height 63 [in_i] 63 [in_i] [facility] ([facility]) 5'3" Body weight 147.00 [lb_av] 147.00 [lb_av] [facility] Oxygen saturation in Arterial blood by Pulse oximetry 98 % 98 % [facility] ([facility]) Room Air Body height 63 [in_i] 63 [in_i] [facility] ([facility]) 5'3" Body weight 147.00 [lb_av] 147.00 [lb_av] [facility] Body mass index (BMI) [Ratio] 26.0 kg/m2 26.0 k g/m2 [facility] ([facility]) [place] body weight 115 [lb_av] 115 [lb_av] [facility] ([facility]) Body weight 66.679 kg 66.679 kg [facility] ([facility]) Body surface area Derived from formula 1.70 m2 1.70 m2 [facility] ([facility]) Heart rate 74 /min 74 /min [facility] ([facility]) Body mass index (BMI) [Ratio] 26.0 kg/m2 26.0 k g/m2 [facility] ([facility]) [place] body weight 115 [lb_av] 115 [lb_av] [facility] ([facility], ) Body weight 66.679 kg 66.679 kg [facility] ([facility]) Body surface area Derived from formula 1.70 m2 1.70 m2 [facility] ([facility]) Diastolic blood pressure 64 mm[Hg] 64 mm[Hg] [facility] ([facility]) Heart rate 77 /min 77 /min [facility] ([facility]) Body height 62.5 [in_i] 62.5 [in_i] [facility] ([facility]) 5'2.50" Body weight 154.50 [lb_av] 154.50 [lb_av] [facility] [place] ([facility]) Systolic blood pressure 126 mm[Hg] 126 mm[Hg] [facility] ([facility]) Oxygen saturation in Arterial blood by Pulse oximetry 98 % 98 % [facility] ([facility]) Air Body mass index (BMI) [Ratio] 27.8 kg/m2 27.8 k g/m2 [facility] ([facility])
[2021-02-13] MEDS: cefTRIAXone SOD 1 GM in D5W MINI-BAG PLUS 50 ML IV SCH (18:16)
--- NOTE | 2021-02-13 18:59 | REPVR ---
PROCEDURE INFORMATION: Exam: CTA Chest With Contrast Exam date and time: 02/13/2021 5:37 PM Age: 75 years old Clinical indication: Shortness of breath; Additional info: SOB TECHNIQUE: Imaging protocol: Computed tomographic angiography of the chest with contrast. 3D rendering (Not supervised by radiologist): MIP and/or 3D reconstructed images were created by the technologist. Radiation optimization: All CT scans at this facility use at least one of these dose optimization techniques: automated exposure control; mA and/or kV adjustment per patient size (includes targeted exams where dose is matched to clinical indication); or iterative reconstruction. Contrast material: ISOVUE 370; Contrast volume: 100 ml; Contrast route: INTRAVENOUS (IV); COMPARISON: CR PORTABLE CHEST X-RAY 02/13/2021 1:26 PM FINDINGS: Limitations: Patient motion. Pulmonary arteries: No convincing evidence of pulmonary embolus. Aorta: Aortic calcification without aneurysm or dissection. Lungs: There is bilateral airspace disease with dependent predominant distribution. Pleural spaces: Unremarkable. No pneumothorax. No pleural effusion. Heart: Unremarkable. No cardiomegaly. No pericardial effusion. Lymph nodes: Unremarkable. No enlarged lymph nodes. Liver: Hepatic steatosis. Bones/joints: There are degenerative changes involving the spine. Previous right shoulder arthroplasty. Soft tissues: Unremarkable. IMPRESSION: 1. No evidence of pulmonary embolus. 2. There is bilateral airspace disease with dependent predominant distribution. Consider pneumonia/aspiration. 3. Additional findings as above. Electronically signed by: Yobany Orta On 02/13/2021 18:59:03 PM
[2021-02-13 19:13] LABS: INR 1.26; PROTHROMBIN TIME 16.2 SECONDS (12.7-14.5)
[2021-02-13 19:14] LABS: PARTIAL THROMBOPLASTIN TIME 32.2 SECONDS (25.9-37.0)
[2021-02-13 19:16] LABS: D-DIMER QUANT 893.76 ng/ml (<500)
[2021-02-13 19:32] LABS: C REACTIVE PROTEIN QUANTITATIV 24.7 MG/DL (0.00-0.30); MAGNESIUM LEVEL 2.2 MG/DL (1.8-2.4)
[2021-02-13] MEDS: AZITHROMYCIN INJ 500 MG, VIAL MATE ADAPTER 1 EACH in NS 250 ML IV SCH (20:22)
[2021-02-13] MEDS: dexameTHASONE 4 MG/ML 1ML VIAL (J1100 PER 1MG) IV SCH (21:00)
--- NOTE | 2021-02-13 23:27 | HPEPDOC ---
General Date of Admission Feb 13, 2021 at 16:28 Date of Service: Feb 13, 2021 Chief Complaint The patient is a 75-year-old female admitted with a reason for visit of Covid- 19, Hypoxia. Source: Patient History of Present Illness Mrs. Linder is a 75 year old female who is here for dyspnea and found to be hypoxic secondary to COVID pneumonia. Patient tells me that she's fairly healthy and is not on any routine medication. Patient is not COVID vaccinated. Denies any recent travel, but her son was recently sick. They thought the son brought it home from school. Patient's symptoms first started on 01/30/2021 with headache and cough. She tested positive on 01/31/2021. She self quarantined, but she started to developed dyspnea. Today, she felt that she could not breathe and c marylou into the ED for evaluation. At room air, she saturated at 90%, but with ambulation, she saturated at 77%. Patient was put on 4L. When I was in the room, patient was on nasal cannula. She felt much better with the oxygen. Patient symptoms included headache, dyspnea, cough, and diarrhea. Lab was significant for leucocytosis and elevated CRP. Patient will be admitted for hypoxia secondary to COVID pneumonia. Home Medications Scheduled Multivitamin with Folic Acid (One Daily Multivitamin Tablet) 400 Mcg Tablet, 1 TAB PO DAILY, (Reported) Allergies Coded Allergies: latex (Verified Allergy, Intermediate, RASH, 12/12/18) Past Medical History Medical History 1. LACI 2. Arthritis 3. History of herniated disc s/p laminectomy Surgical History 1. Eyelid lift 2. Laminectomy 3. Cholecystectomy 4. Tubal ligation 5. Lap x2 for endometriosis 6. Left knee meniscus repair 7. Right rotator cuff repair Family History Father: History of pulmonary fibrosis secondary working to [employer] Mother: History of blood disorder Social History * Smoker: Denies Alcohol: rarely Drugs: denies A-FIB/CHADSVASC A-FIB History Current/History of A-Fib/PAF?: No Review of Systems Constitutional: Reports: Fever Eyes: Denies: Vision change ENT: Reports: Head Aches Skin: Denies: Rash Pulmonary: Reports: Dyspnea, Cough Cardiovascular: Denies: Chest Pain Gastrointestinal: Reports: Diarrhea; Denies: Nausea, Abdominal Pain Genitourinary: Denies: Dysuria Hematologic: Denies: Bruising Neurological: Denies: Numbness Psych: Denies: Anxiety, Depression Physical Examination General Exam: Positive: Alert, Cooperative Eye Exam: Negative: EOMI, Sclera icteric ENT Exam: Positive: Atraumatic Neck Exam: Positive: Supple Chest Exam: Positive: Clear to auscultation Heart Exam: Positive: Rate Normal, Regular Rhythm Abdomen Exam: Positive: Normal bowel sounds, Soft; Negative: Tenderness Extremity Exam: Negative: Edema Neuro Exam: Positive: Normal Speech, Cranial Nerves 3-12 NL Psych Exam: Positive: Mental status NL, Mood NL Vital Signs Vital Signs Date Time Temp Pulse Resp B/P (MAP) Pulse Ox O2 Delivery O2 Flow Rate FiO2 02/13/21 21:50 84 92 02/13/21 21:30 149/91 (110) 02/13/21 18:23 97.8 20 Room Air Laboratory Data Labs 24H Laboratory Tests 2 02/13/21 13:21: Immature Granulocyte % (Auto) 2.4, Neutrophils (%) (Auto) 83.7H, Lymphocytes (%) (Auto) 2.0L, Monocytes (%) (Auto) 10.9H, Eosinophils (%) (Auto) 0.6, Basophils (%) (Auto) 0.4, Neutrophils # (Auto) 13.6H, Lymphocytes # (Auto) 0.3L, Monocytes # (Auto) 1.8H, Eosinophils # (Auto) 0.1, Basophils # (Auto) 0.1, Nucleated Red Blood Cells % (auto) 0.0, Anion Gap 9, Glomerular Filtration Rate > 60.0, Calcium Level 8.5L, Total Bilirubin 1.5H, Direct Bilirubin 0.5H, Aspartate Amino Transf (AST/SGOT) 28, Alanine Aminotransferase (ALT/SGPT) 75, Alkaline Phosphatase 66, Total Creatine Kinase 17L, Creatine Kinase MB < 1.0, Creatine Kinase MB Relative Index 5.88H, Troponin I < 0.02, DC-Fhl-W-Type Natriuretic Peptide 216H, Total Protein 6.6, Albumin 2.6L, Albumin/Globulin Ratio 0.7L, Thyroid Stimulating Hormone (TSH) 0.748 02/13/21 13:59: Influenza A Immunofluorescence NEGATIVE, Influenza B Immunofluorescence NEGATIVE, SARS Antigen (LFIA) NEGATIVE 02/13/21 18:41: Prothrombin Time 16.2H, Prothromb Time International Ratio 1.26, Activated Partial Thromboplast Time 32.2, Fibrinogen 1000H, D-Dimer, Quantitative 893.76H 02/13/21 18:42: Magnesium Level 2.2, Ferritin 849H, Lactate Dehydrogenase 304H, C-Reactive Protein, Quantitative 24.70H, Procalcitonin 0.14 CBC/BMP Laboratory Tests 02/13/21 13:21 Microbiology Microbiology 02/13/21 Respiratory Virus Panel (PCR) (NONI) - Final, Complete SARS-CoV-2 (COVID 19) 02/13/21 Blood Culture, Received Pending 02/13/21 Blood Culture, Received Pending Assessment/Plan Mrs. Linder is a 75 year old female who is here for dyspnea and found to be hypoxic secondary to COVID pneumonia. Patient suspects that she got it from her son who got it from school. Patient is unvaccinated. Patient will be started on remdesivir and steroids. Patient will be started on ceftriaxone and azithromycin. Plan / VTE VTE Prophylaxis Ordered?: Yes Plan Plan 1. Hypoxia secondary to COVID pneumonia -Patient unvaccinated -Symptoms started 01/30 -Start remdesivir and dexamethasone -Ceftriaxone and azithromycin day 1 -Procalcitonin ordered 2. Hepatic steatosis -Seen on CT angio chest -Mild elevated of bilirubin without elevated of AST or ALT 3. DVT ppx -Lovenox and aspirin Disposition: Pending clinical improvement AMINATA HANSON DO Feb 13, 2021 23:27
[2021-02-14] VITALS (7 sets, daily range): BP systolic 130–142; BP diastolic 65–78; O2SAT 93–95
[2021-02-14] MEDS ORDERED: REMDESIVIR 200 MG in NS 250 ML IV ONE (02:00)
[2021-02-14] MEDS ORDERED: SODIUM CHLORIDE 0.9% INJ 10 ML SYR IV ONE (04:00)
[2021-02-14 06:21] LABS: HEMOGLOBIN 12.6 g/dl (12.0-15.5); MEAN CORPUSCULAR HEMOGLOBIN 28.7 pg (27.0-33.0); MEAN CORPUSCULAR HGB CONC 33.2 g/dl (32.0-36.5); MEAN CORPUSCULAR VOLUME 86.6 fl (80.0-96.0); PLATELET COUNT, AUTOMATED 438 10^3/uL (150-450); RED BLOOD COUNT 4.39 10^6/uL (4.00-5.40); WHITE BLOOD COUNT 7.3 10^3/uL (4.0-10.0)
[2021-02-14 06:32] LABS: APPEARANCE, URINE HAZY (CLEAR); BACTERIA, URINE AUTO 1+ (NEGATIVE); BILIRUBIN, URINE AUTO NEGATIVE (NEGATIVE); BLOOD, URINE BLOOD NEGATIVE (NEGATIVE); COLOR, URINE YELLOW (YELLOW); GLUCOSE, URINE (UA) AUTO NEGATIVE (NEGATIVE); KETONE, URINE AUTO 1+ mg/dL (NEGATIVE); LEUKOCYTE ESTERASE, URINE AUTO NEGATIVE (NEGATIVE); MUCUS, URINE SMALL (NEGATIVE); NITRITE, URINE AUTO NEGATIVE (NEGATIVE); PROTEIN, URINE AUTO 2+ mg/dL (NEGATIVE); RBC, URINE AUTO 5 /HPF (0-3); SPECIFIC GRAVITY URINE AUTO 1.042 (1.002-1.035); SQUAMOUS EPITHELIAL CELL UR AU 0 /HPF (0-6); UROBILINOGEN, URINE AUTO 0.2 mg/dL (0.0-2.0); WBC, URINE AUTO 3 /HPF (0-3)
[2021-02-14 06:47] LABS: ALBUMIN 2.1 GM/DL (3.2-5.2); ALT/SGPT 56 U/L (12-78); BILIRUBIN,DIRECT 0.2 MG/DL (0.0-0.2); BILIRUBIN,TOTAL 0.6 MG/DL (0.2-1.0); BLOOD UREA NITROGEN 16 MG/DL (7-18); CALCIUM LEVEL 8.6 MG/DL (8.8-10.2); CARBON DIOXIDE LEVEL 26 MEQ/L (21-32); CHLORIDE LEVEL 104 MEQ/L (98-107); CREATININE FOR GFR 0.54 MG/DL (0.55-1.30); GLOMERULAR FILTRATION RATE > 60.0 (>39); GLUCOSE, FASTING 150 MG/DL (70-100); MAGNESIUM LEVEL 2.2 MG/DL (1.8-2.4); POTASSIUM SERUM 3.1 MEQ/L (3.5-5.1); SODIUM LEVEL 139 MEQ/L (136-145); TOTAL PROTEIN 6.3 GM/DL (6.4-8.2)
[2021-02-14 07:07] LABS: LYMPHOCYTES 9 % (16-44); METAMYELOCYTES 2 % (0-0); MONOCYTES 4 % (0-5); NEUTROPHILS 85 % (28-66)
[2021-02-14 07:08] LABS: PLATELET ESTIMATE NORMAL (NORMAL)
[2021-02-14 07:09] LABS: ANISOCYTOSIS 1+
--- NOTE | 2021-02-14 08:15 | ECGEPIP ---
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
[2021-02-14] MEDS: ASPIRIN 81MG ENTERIC TABLET PO SCH (08:23)
[2021-02-14] MEDS: ENOXAPARIN 40MG/0.4ML SYRINGE (J1650 PER 10MG) SC SCH (08:24)
--- NOTE | 2021-02-14 11:21 | IPNPDOC ---
Date Seen The patient was seen on 02/14/21. Progress Note SUBJECTIVE: sob better than yesterday. denies loss of taste, loss of taste, n/v/abd pain/diarrhea/briceno/chest pain OBJECTIVE PHYSICAL EXAMINATION: VITAL SIGNS: Please see below. GENERAL: no distress HEENT: moist mm EOMI no jvd/thyromegaly or LAD CARDIOVASCULAR: S1S2 RRR RESPIRATORY: diminished. AEBE ABDOMINAL:+BS soft nt nd EXTREMITIES:no c/c/e LABORATORY DATA, IMAGING STUDIES, MICROBIOLOGY: Please see below. ASSESSMENT AND PLAN: 75 y/o F with coronavirus pneumonia acute hypoxic respiratory failure LACI -supportive care w remdesevir, o2, decadron -pt says she bleeds with asa. -keep sat 90% disposition: 2-3 days. VS, I&O, 24H, Fishbone Vital Signs/I&O Vital Signs Date Time Temp Pulse Resp B/P (MAP) Pulse Ox O2 Delivery O2 Flow Rate FiO2 02/14/21 09:00 4.0 02/14/21 08:00 95 Nasal Cannula 02/14/21 06:00 97.3 70 18 138/66 (90) I&O- Last 24 Hours up to 6 AM 02/14/21 06:00 Intake Total 255 ml Balance 255 ml Laboratory Data 24H LABS Laboratory Tests 2 02/13/21 13:21: Immature Granulocyte % (Auto) 2.4, Neutrophils (%) (Auto) 83.7H, Lymphocytes (%) (Auto) 2.0L, Monocytes (%) (Auto) 10.9H, Eosinophils (%) (Auto) 0.6, Basophils (%) (Auto) 0.4, Neutrophils # (Auto) 13.6H, Lymphocytes # (Auto) 0.3L, Monocytes # (Auto) 1.8H, Eosinophils # (Auto) 0.1, Basophils # (Auto) 0.1, Nucleated Red Blood Cells % (auto) 0.0, Anion Gap 9, Glomerular Filtration Rate > 60.0, Calcium Level 8.5L, Total Bilirubin 1.5H, Direct Bilirubin 0.5H, Aspartate Amino Transf (AST/SGOT) 28, Alanine Aminotransferase (ALT/SGPT) 75, Alkaline Phosphatase 66, Total Creatine Kinase 17L, Creatine Kinase MB < 1.0, Creatine Kinase MB Relative Index 5.88H, Troponin I < 0.02, GC-Gjr-S-Type Natriuretic Peptide 216H, Total Protein 6.6, Albumin 2.6L, Albumin/Globulin Ratio 0.7L, Thyroid Stimulating Hormone (TSH) 0.748 02/13/21 13:59: Influenza A Immunofluorescence NEGATIVE, Influenza B Immunofluorescence NEGATIVE, SARS Antigen (LFIA) NEGATIVE 02/13/21 18:41: Prothrombin Time 16.2H, Prothromb Time International Ratio 1.26, Activated Partial Thromboplast Time 32.2, Fibrinogen 1000H, D-Dimer, Quantitative 893.76H 02/13/21 18:42: Magnesium Level 2.2, Ferritin 849H, Lactate Dehydrogenase 304H, C-Reactive Protein, Quantitative 24.70H, Procalcitonin 0.14 02/14/21 05:22: Immature Granulocyte % (Auto) , Neutrophils (%) (Auto) , Nucleated Red Blood Cells % (auto) 0.0, Neutrophils 85H, Lymphocytes (Manual) 9L, Monocytes (Manual) 4, Metamyelocytes 2H, Anisocytosis 1+, Platelet Estimate NORMAL, Anion Gap 9, Glomerular Filtration Rate > 60.0, Calcium Level 8.6L, Magnesium Level 2.2, Total Bilirubin 0.6#, Direct Bilirubin 0.2, Aspartate Amino Transf (AST/SGOT) 17, Alanine Aminotransferase (ALT/SGPT) 56, Alkaline Phosphatase 55, Total Protein 6.3L, Albumin 2.1L, Albumin/Globulin Ratio 0.5L 02/14/21 05:55: Urine Color YELLOW, Urine Appearance HAZY, Urine pH 5.0, Urine Specific [place] 1.042, Urine Protein 2+H, Urine Glucose (Auto)(UA) NEGATIVE, Urine Ketones (Auto) 1+H, Urine Blood NEGATIVE, Urine Nitrite NEGATIVE, Urine Bilirubin NEGATIVE, Urine Urobilinogen 0.2, Urine Leukocyte Esterase (Auto) NEGATIVE, Urine WBC (Auto) 3, Urine RBC (Auto) 5H, Urine Hyaline Casts (Auto) 0, Urine Bacteria (Auto) 1+H, Urine Squamous Epithelial Cells 0, Urine Mucus (Auto) SMALL, Urine Sperm (Auto) CBC/BMP Laboratory Tests 02/13/21 13:21 02/14/21 05:22 Microbiology Microbiology 02/13/21 Respiratory Virus Panel (PCR) (NONI) - Final, Complete SARS-CoV-2 (COVID 19) 02/13/21 Blood Culture, Received Pending 02/13/21 Blood Culture, Received Pending NICK TAMEZ MD Feb 14, 2021 11:21
[2021-02-14] MEDS: cefTRIAXone SOD 1 GM in D5W MINI-BAG PLUS 50 ML IV SCH (17:01)
[2021-02-14] MEDS: AZITHROMYCIN INJ 500 MG, VIAL MATE ADAPTER 1 EACH in NS 250 ML IV SCH (17:59)
[2021-02-14] MEDS: dexameTHASONE 4 MG/ML 1ML VIAL (J1100 PER 1MG) IV SCH (21:18)
[2021-02-14] MEDS: REMDESIVIR 100 MG in NS 250 ML IV SCH (21:19)
[2021-02-14] MEDS: SODIUM CHLORIDE 0.9% INJ 10 ML SYR IV SCH (23:13)
[2021-02-15] VITALS (11 sets, daily range): BP systolic 115–137; BP diastolic 60–70; O2SAT 93–96
[2021-02-15 08:05] LABS: BASO # 0.1 10^3/uL (0.0-0.2); BASO % 0.3 % (0.0-1.0); HEMATOCRIT 36.5 % (36.0-47.0); LYMPH # 0.6 10^3/uL (1.5-5.0); MEAN CORPUSCULAR HEMOGLOBIN 28.8 pg (27.0-33.0); MEAN CORPUSCULAR HGB CONC 32.9 g/dl (32.0-36.5); MEAN CORPUSCULAR VOLUME 87.7 fl (80.0-96.0); MONO # 1.2 10^3/uL (0.0-0.8); MONO % 6.3 % (2.0-8.0); NEUTROPHILS # 16.4 10^3/uL (1.5-8.5); NEUTROPHILS % 86.7 % (36.0-66.0); PLATELET COUNT, AUTOMATED 540 10^3/uL (150-450); RED BLOOD COUNT 4.16 10^6/uL (4.00-5.40); WHITE BLOOD COUNT 18.9 10^3/uL (4.0-10.0)
[2021-02-15 08:15] LABS: INR 1.11; PROTHROMBIN TIME 14.7 SECONDS (12.7-14.5)
[2021-02-15 08:16] LABS: PARTIAL THROMBOPLASTIN TIME 32.7 SECONDS (25.9-37.0)
[2021-02-15] MEDS: ASPIRIN 81MG ENTERIC TABLET PO SCH (08:25)
[2021-02-15] MEDS: ENOXAPARIN 40MG/0.4ML SYRINGE (J1650 PER 10MG) SC SCH (08:26)
[2021-02-15 08:37] LABS: ALBUMIN 2.1 GM/DL (3.2-5.2); ALT/SGPT 46 U/L (12-78); BILIRUBIN,DIRECT 0.1 MG/DL (0.0-0.2); BILIRUBIN,TOTAL 0.5 MG/DL (0.2-1.0); BLOOD UREA NITROGEN 26 MG/DL (7-18); CALCIUM LEVEL 8.8 MG/DL (8.8-10.2); CARBON DIOXIDE LEVEL 24 MEQ/L (21-32); CHLORIDE LEVEL 108 MEQ/L (98-107); CPK CREATINE PHOSPHOKINASE 18 U/L (26-192); FERRITIN 602 NG/ML (8-252); GLOMERULAR FILTRATION RATE > 60.0 (>39); GLUCOSE, FASTING 123 MG/DL (70-100); LDH LACTATE DEHYDROGENASE 191 U/L (84-246); MAGNESIUM LEVEL 2.2 MG/DL (1.8-2.4); NT-PRO BNP 559 PG/ML (<125); POTASSIUM SERUM 3.2 MEQ/L (3.5-5.1); SODIUM LEVEL 140 MEQ/L (136-145); TOTAL PROTEIN 6.1 GM/DL (6.4-8.2); TROPONIN I < 0.02 NG/ML (< 0.10)
[2021-02-15] MEDS ORDERED: POTASSIUM CHLORIDE 10MEQ SR TABLET PO ONE (12:05)
[2021-02-15] MEDS ORDERED: PRED10TA2 PO (14:14)
--- NOTE | 2021-02-15 15:08 | IPN ---
PROGRESS NOTE DATE: 02/15/2021 SUBJECTIVE: Patient says that she is feeling a lot better. She has less dyspnea on exertion when she moves from the bed to the bathroom and back when previously she had significant dyspnea on exertion even from going for bedside commode back to the bed. She continues to have cough productive of white sputum without fever or chills, no nausea or vomiting. Appetite has improved. No diarrhea or headaches, changes in vision. No anosmia. No loss of taste. OBJECTIVE: Vital signs: Temperature 97.4, pulse 73, respiratory rate 18, blood pressure 115/60, 95% on 4 liters nasal cannula. General: Awake, alert, oriented to person, place and time, answering questions appropriately. No use of respiratory accessory muscles, able to speak in full sentences. HEENT: Moist mucous membranes. Neck: No JVD, no thyromegaly, no cervical lymphadenopathy. Lungs: Diminished, clear with fine crackles bilaterally. Heart: S1 and S2 sinus rhythm. Abdomen: Soft, nontender, nondistended, positive bowel sounds. Extremities: No cyanosis, clubbing or pitting edema. LABORATORY DATA/IMAGING STUDIES/MICROBIOLOGY: Reviewed. ASSESSMENT: This is a 75-year-old female admitted for acute hypoxia secondary to Coronavirus pneumonia on remdesivir with negative procalcitonin level 0.14 currently less than 0.05. IMPRESSIONS: 1. Acute hypoxic respiratory failure. 2. Coronavirus pneumonia. 3. History of obstructive sleep apnea on CPAP. 4. Chronic osteoarthritis. 5. Herniated disc status post laminectomy. PLAN: Patient is continued on remdesivir, I.V. Decadron, supplemental oxygen to keep saturations above 90%. There does not appear to be any secondary bacterial infection with negative procalcitonin therefore antibiotics will be discontinued. Patient is continued on aspirin and Lovenox. If patient continues to do well possible discharge in the morning or Wednesday.
[2021-02-15 17:07] LABS: MYCOPLASMA PNEUMONIAE IgG 108 U/mL (0-99); MYCOPLASMA PNEUMONIAE IgM <770 U/mL (0-769)
[2021-02-15] MEDS: REMDESIVIR 100 MG in NS 250 ML IV SCH (21:36)
[2021-02-15] MEDS: SODIUM CHLORIDE 0.9% INJ 10 ML SYR IV SCH (21:36)
[2021-02-15] MEDS: dexameTHASONE 4 MG/ML 1ML VIAL (J1100 PER 1MG) IV SCH (21:36)
[2021-02-16] VITALS (7 sets, daily range): BP systolic 126–136; BP diastolic 59–70; O2SAT 92–94
[2021-02-16 05:44] LABS: BASO % 0.3 % (0.0-1.0); HEMATOCRIT 36.2 % (36.0-47.0); HEMOGLOBIN 11.9 g/dl (12.0-15.5); LYMPH # 0.5 10^3/uL (1.5-5.0); LYMPH % 3.2 % (24.0-44.0); MEAN CORPUSCULAR HGB CONC 32.9 g/dl (32.0-36.5); MEAN CORPUSCULAR VOLUME 88.3 fl (80.0-96.0); MONO # 0.7 10^3/uL (0.0-0.8); NEUTROPHILS # 12.8 10^3/uL (1.5-8.5); PLATELET COUNT, AUTOMATED 466 10^3/uL (150-450); WHITE BLOOD COUNT 14.7 10^3/uL (4.0-10.0)
[2021-02-16 06:11] LABS: BLOOD UREA NITROGEN 24 MG/DL (7-18); CALCIUM LEVEL 8.4 MG/DL (8.8-10.2); CARBON DIOXIDE LEVEL 23 MEQ/L (21-32); CHLORIDE LEVEL 112 MEQ/L (98-107); CREATININE FOR GFR 0.72 MG/DL (0.55-1.30); GLOMERULAR FILTRATION RATE > 60.0 (>39); GLUCOSE, FASTING 141 MG/DL (70-100); POTASSIUM SERUM 4.1 MEQ/L (3.5-5.1); SODIUM LEVEL 141 MEQ/L (136-145)
[2021-02-16] MEDS: ENOXAPARIN 40MG/0.4ML SYRINGE (J1650 PER 10MG) SC SCH ×2 (09:00→10:36)
[2021-02-16] MEDS: ASPIRIN 81MG ENTERIC TABLET PO SCH (10:35)
--- NOTE | 2021-02-16 12:18 | DS.PDOC ---
Discharge Summary General Date of Admission Feb 13, 2021 at 16:28 Date of Discharge 02/16/21 Discharge Summary DISCHARGE DIAGNOSES: 1. Acute hypoxic respiratory failure. 2. Coronavirus pneumonia. 3. History of obstructive sleep apnea on CPAP. 4. Chronic osteoarthritis. 5. Herniated disc status post laminectomy. DISCHARGE MEDICATIONS; SEE BELOW DISCHARGE ISNTRUCTIONS: 2LITERS NASAL CANNULA O2 VIA NC TO KEEP SAT 90% . PCP 5DAYS FU APPT. HOSPITAL COURSE: This is a 75-year-old female admitted for acute hypoxia secondary to Coronavirus pneumonia on remdesivir with negative procalcitonin level 0.14 with repeat procalcitonin of less than 0.05.She was continued on remdesevir, I.V. Decadron, lovenox, supplemental oxygen to keep saturations above 90%. There does not appear to be any secondary bacterial infection with negative procalcitonin . antibiotics will be discontinued. Patient is continued on aspirin and Lovenox. Pt had symptomatic improvement w ith increased appetite, and less TERESA, but still requiring oxygen. DISCHARGE PE VITALS: SEE BELOW General: Awake, alert, oriented to person, place and time, answering questions appropriately. No use of respiratory accessory muscles, able to speak in full sentences. HEENT: Moist mucous membranes. Neck: No JVD, no thyromegaly, no cervical lymphadenopathy. Lungs: Diminished, clear with fine crackles bilaterally. Heart: S1 and S2 sinus rhythm. Abdomen: Soft, nontender, nondistended, positive bowel sounds. Extremities: No cyanosis, clubbing or pitting edema. LABORATORY DATA/IMAGING STUDIES/MICROBIOLOGY: SEE CHART TIME SPENT ON DISCHARGE: 30 MIN Vital Signs/I&Os Vital Signs Date Time Temp Pulse Resp B/P (MAP) Pulse Ox O2 Delivery O2 Flow Rate FiO2 02/16/21 06:00 97.4 70 16 126/59 (81) 96 Nasal Cannula 2.0 I&O- Last 24 Hours up to 6 AM 02/16/21 06:00 Intake Total 1350 ml Output Total 300 ml Balance 1050 ml Laboratory Data Labs 24H Laboratory Tests 2 02/16/21 05:23: Immature Granulocyte % (Auto) 4.5H, Neutrophils (%) (Auto) 87.0H, Lymphocytes (%) (Auto) 3.2L, Monocytes (%) (Auto) 5.0, Eosinophils (%) (Auto) 0.0, Basophils (%) (Auto) 0.3, Neutrophils # (Auto) 12.8H, Lymphocytes # (Auto) 0.5L, Monocytes # (Auto) 0.7, Eosinophils # (Auto) 0.0, Basophils # (Auto) 0.0, Nucleated Red Blood Cells % (auto) 0.0, Anion Gap 6L, Glomerular Filtration Rate > 60.0, Calcium Level 8.4L, Magnesium Level 2.0 CBC/BMP Laboratory Tests 02/16/21 05:23 Microbiology Microbiology 02/14/21 Blood Culture - Preliminary, Resulted No growth after 24 hours . All specim... 02/14/21 Blood Culture - Preliminary, Resulted No growth after 24 hours . All specim... 02/13/21 Respiratory Virus Panel (PCR) (NONI) - Final, Complete SARS-CoV-2 (COVID 19) 02/13/21 Blood Culture - Final, Complete Staphylococcus Hominis Ssp Archie 02/13/21 Blood Culture - Preliminary, Resulted No Growth after 48 hours. All Specime... Discharge Medications Scheduled Multivitamin with Folic Acid (One Daily Multivitamin Tablet) 400 Mcg Tablet, 1 TAB PO DAILY, (Reported) Prednisone (Prednisone) 10 Mg Tablet, 10 MG PO TAPER Take 4 tabs daily x 3 days, then 3 tabs daily x 3 days, then 2 tabs daily x 3 days, then 1 tab daily x 3 days and stop Allergies Coded Allergies: latex (Verified Allergy, Intermediate, RASH, 12/12/18) NICK TAMEZ MD Feb 16, 2021 12:17
[2021-02-16] MEDS: REMDESIVIR 100 MG in NS 250 ML IV SCH (21:15)
[2021-02-16] MEDS: dexameTHASONE 4 MG/ML 1ML VIAL (J1100 PER 1MG) IV SCH (21:15)
[2021-02-16] MEDS: SODIUM CHLORIDE 0.9% INJ 10 ML SYR IV SCH (21:16)
[2021-02-17] VITALS: O2SAT 93
[2021-02-17 04:00] VITALS: O2SAT 92
[2021-02-17 06:00] VITALS: BP 144/70
[2021-02-17 08:00] VITALS: O2SAT 93
[2021-02-17 08:24] LABS: HEMATOCRIT 37.3 % (36.0-47.0); HEMOGLOBIN 12.2 g/dl (12.0-15.5); MEAN CORPUSCULAR HEMOGLOBIN 28.7 pg (27.0-33.0); MEAN CORPUSCULAR HGB CONC 32.7 g/dl (32.0-36.5); MEAN CORPUSCULAR VOLUME 87.8 fl (80.0-96.0); PLATELET COUNT, AUTOMATED 485 10^3/uL (150-450); RED BLOOD COUNT 4.25 10^6/uL (4.00-5.40); WHITE BLOOD COUNT 13.9 10^3/uL (4.0-10.0)
[2021-02-17 08:35] LABS: INR 1.04
[2021-02-17 08:36] LABS: PARTIAL THROMBOPLASTIN TIME 29.7 SECONDS (25.9-37.0)
[2021-02-17 08:50] LABS: ALBUMIN 2.3 GM/DL (3.2-5.2); ALT/SGPT 63 U/L (12-78); BILIRUBIN,DIRECT 0.2 MG/DL (0.0-0.2); BILIRUBIN,TOTAL 0.6 MG/DL (0.2-1.0); BLOOD UREA NITROGEN 23 MG/DL (7-18); CALCIUM LEVEL 8.4 MG/DL (8.8-10.2); CARBON DIOXIDE LEVEL 25 MEQ/L (21-32); CHLORIDE LEVEL 110 MEQ/L (98-107); CPK CREATINE PHOSPHOKINASE 19 U/L (26-192); CREATININE FOR GFR 0.72 MG/DL (0.55-1.30); FERRITIN 384 NG/ML (8-252); GLOMERULAR FILTRATION RATE > 60.0 (>39); GLUCOSE, FASTING 122 MG/DL (70-100); LDH LACTATE DEHYDROGENASE 200 U/L (84-246); NT-PRO BNP 936 PG/ML (<125); SODIUM LEVEL 139 MEQ/L (136-145); TOTAL PROTEIN 5.7 GM/DL (6.4-8.2); TROPONIN I < 0.02 NG/ML (< 0.10)
[2021-02-17] MEDS: ENOXAPARIN 40MG/0.4ML SYRINGE (J1650 PER 10MG) SC SCH (09:00)
[2021-02-17 09:16] LABS: LYMPHOCYTES 4 % (16-44); MONOCYTES 8 % (0-5); NEUTROPHILS 88 % (28-66); PLATELET ESTIMATE NORMAL (NORMAL)
[2021-02-17] MEDS: ASPIRIN 81MG ENTERIC TABLET PO SCH (09:25)
--- NOTE | 2021-02-17 12:13 | DSES ---
DISCHARGE SUMMARY DATE OF ADMISSION: 02/13/2021 DATE OF DISCHARGE: 02/17/2021 PRIMARY DISCHARGE DIAGNOSIS: 1. Acute hypoxic respiratory failure. 2. Coronavirus pneumonia. 3. History of obstructive sleep apnea on CPAP. 4. Chronic arthritis. 5. History of herniated disc status post laminectomy. Patient's discharge yesterday was postponed due to inability to go up 10 steps at home. She feels much better today and has had no other issues overnight. PHYSICAL EXAMINATION: VITAL SIGNS: Temperature is 97.4, pulse is 70, respiratory rate is 16, blood pressure is 144/70, 93% on room air. GENERAL: Awake, alert and oriented x3, answering questions appropriately. NECK: No jugular venous distention. No thyromegaly. No use of respiratory accessory muscles. No stridor on exam. LUNGS: Diminished. HEART: S1 and S2, sinus. ABDOMEN: Soft, nontender and nondistended. EXTREMITIES: No pitting edema. LABORATORY DATA/IMAGING STUDIES/MICROBIOLOGY: Please see the chart. TIME SPENT ON DISCHARGE: 30 minutes MTDD
[2021-02-17 17:07] LABS: BODY FLUID CULTURE Not indicated. (.); LEGIONELLA ANTIGEN URINE Negative (Negative); ORGANISM ID Not indicated. (.); SPECIMEN SOURCE Urine (.); URINE STREP PNEUMONIAE ANTIGEN Negative (Negative)
== END 2021-02-17 11:35 | disposition home or self-care (01) | DRG 177 ==
LOC: M ED 12:37 → M ED INP 16:28 → ENRESERV 02-14 00:50 → M 4MAIN 02-14 01:58
PROVIDERS: ADMIT Internal Medicine; ATTEND Internal Medicine
PROC: 3E0333Z Introduction of Anti-inflammatory into Peripheral Vein, Percutaneous Approach (ICD-10-PCS; principal; 2021-02-13)
PROC: XW033E5 Introduction of Remdesivir Anti-infective into Peripheral Vein, Percutaneous Approach, New Technology Group 5 (ICD-10-PCS; 2021-02-14)
DX: U07.1 COVID-19 (principal); J12.82 Pneumonia due to coronavirus disease 2019; J96.01 Acute respiratory failure with hypoxia; G47.33 Obstructive sleep apnea (adult) (pediatric); M19.90 Unspecified osteoarthritis, unspecified site; Z98.1 Arthrodesis status; Z90.49 Acquired absence of other specified parts of digestive tract; K76.0 Fatty (change of) liver, not elsewhere classified; Z79.899 Other long term (current) drug therapy; Z91.040 Latex allergy status

== ENCOUNTER → 2021-12-03 | Outpatient (REF) | payer MEDICARE, OTHER ==
[~2021-12-03] MED LIST changes: +ESSETAB4 PO; +PRED10TA2 PO
[2021-12-03 17:41] LABS: PERCENT SATURATION 12.4 % (13.2-45.0)
== END ==
LOC: M LAB REF 16:07
PROVIDERS: ATTEND Internal Medicine
DX: M25.562 Pain in left knee (principal); M17.12 Unilateral primary osteoarthritis, left knee; R53.1 Weakness

== ENCOUNTER → 2021-12-25 | Outpatient (REF) | payer MEDICARE, OTHER ==
[2021-12-25 13:51] LABS: APPEARANCE, URINE MANUAL CLEAR (CLEAR); COLOR, URINE MANUAL LT YELLOW (YELLOW); PH,URINE MAN 5.5 UNITS (5.0 - 7.0)
[2021-12-25 13:52] LABS: BILIRUBIN, URINE MANUAL NEGATIVE (NEGATIVE); BLOOD URINE MANUAL NEGATIVE (NEGATIVE); GLUCOSE, URINE (UA) MANUAL NEGATIVE (NEGATIVE); KETONE, URINE MANUAL NEGATIVE (NEGATIVE); LEUKOCYTE ESTERASE, URINE MAN NEGATIVE (NEGATIVE); NITRITE, URINE MANUAL NEGATIVE (NEGATIVE); PROTEIN, URINE MANUAL NEGATIVE (NEGATIVE); UROBILINOGEN, URINE MANUAL NORMAL (NORMAL)
== END ==
LOC: M LAB REF 12:12
PROVIDERS: ATTEND Internal Medicine
DX: Z01.818 Encounter for other preprocedural examination (principal)

== ENCOUNTER → 2022-05-19 | Outpatient (REF) | payer MEDICARE, OTHER | LOC: M LAB REF 16:32 | PROVIDERS: ATTEND Internal Medicine | DX: Z11.59 Encounter for screening for other viral diseases (principal) ==

== ENCOUNTER → 2022-10-28 | Outpatient (REF) | payer MEDICARE, OTHER ==
[2022-10-28 16:05] LABS: FERRITIN 35.9 NG/ML (7.3-270.7)
== END ==
LOC: M LAB REF 12:32
PROVIDERS: ATTEND Internal Medicine
DX: D50.9 Iron deficiency anemia, unspecified (principal)

== ENCOUNTER → 2023-09-20 | Outpatient (REF) | payer MEDICARE, OTHER ==
[2023-09-22 21:08] LABS: CYCLIC CITRULLINATED PEPTIDE 7 units (0-19)
== END ==
LOC: M LAB REF 16:26
PROVIDERS: ATTEND Internal Medicine
DX: M25.50 Pain in unspecified joint (principal)

== ENCOUNTER → 2024-08-15 | Outpatient (REF) | payer MEDICARE, OTHER ==
[2024-08-15 10:49] LABS: INR 0.85; PROTHROMBIN TIME 11.9 SECONDS (12.5-14.5)
[2024-08-15 10:52] LABS: PERCENT SATURATION 25.1 % (13.2-45.0)
== END ==
LOC: M LAB REF 10:10
PROVIDERS: ATTEND Internal Medicine
DX: Z01.818 Encounter for other preprocedural examination (principal); M17.9 Osteoarthritis of knee, unspecified

== ENCOUNTER 2025-01-11 09:33 | Day surgery (SDC) | payer MEDICARE, OTHER ==
[~2025-01-11] VITALS: Ht 160 cm; Wt 65.8 kg
[~2025-01-11 09:33] MED LIST changes: +BISO5TAB14 PO; +LIDOCAINE 2% 100 MG/5 ML SDV (FOR ANES.) As Ordered ONE; +OLME5TAB27 PO
[2025-01-11 09:49] VITALS: TEMP 97.4
[2025-01-11 10:15] VITALS: BP 177/79; O2SAT 100
== END 2025-01-11 10:15 | disposition home or self-care (01) ==
LOC: M OPP 09:33
PROVIDERS: ATTEND Surgery
DX: K22.4 Dyskinesia of esophagus (principal); K44.9 Diaphragmatic hernia without obstruction or gangrene; K21.00 Gastro-esophageal reflux disease with esophagitis, without bleeding; K29.70 Gastritis, unspecified, without bleeding; K31.7 Polyp of stomach and duodenum; G47.30 Sleep apnea, unspecified; Z91.013 Allergy to seafood; Z91.02 Food additives allergy status; Z91.040 Latex allergy status; Z79.899 Other long term (current) drug therapy

== ENCOUNTER → 2025-01-26 | Outpatient (CLI) | payer MEDICARE, OTHER ==
[~2025-01-26] MED LIST changes: +E-Z-GAS II EFFERVESCENT PACKET (SODIUM BICARB./CITRIC ACID/SIMETHICONE) As Ordered ONE; +E-Z-HD 98% w/w 340 GM SUSP BTL As Ordered ONE; +E-Z-PAQUE 96% w/w SUSP 176 GM BTL As Ordered ONE; -LIDOCAINE 2% 100 MG/5 ML SDV (FOR ANES.) As Ordered ONE
== END ==
LOC: M RAD 10:15
PROVIDERS: ATTEND Surgery
DX: R13.10 Dysphagia, unspecified (principal); Q39.4 Esophageal web